=== PATIENT | male | born 1985 | race Caucasian/White ===

== ENCOUNTER 2018-11-13 14:38 | Emergency (ER) | payer MEDICAID, SELFPAY ==
[2018-11-13 14:40] VITALS: BP 114/78; PULSE 117; RESP 16; TEMP 36.2; O2SAT 97; BMI 24.6
--- NOTE | 2018-11-13 16:21 | ED.VISSUMM ---
- ER Visit Summary Date of Service: 11/13/18 Chief Complaint: Vomiting History of Present Illness: The patient is a 33 M reports nausea, vomiting, and diarrhea since early this morning. He denies fever. He is his abdomen feels queasy but no overt abdominal pain. He denies ill contacts. He has had no prior abdominal surgeries. Physical Examination: Vital signs significant only for heart rate of 117. Patient is lying in bed. He appears ill but in no acute distress. Head neck examination is significant for mildly dry mucous membranes. Heart is slightly tachycardic and regular. Lungs sounds are clear. Abdomen is soft and nontender. Active bowel sounds are noted in all 4 quadrants. Test Results: CBC is normal. Chemistry studies unremarkable. Emergency Department Course and Treatment: Patient is given IV fluids along with Zofran and Bentyl. On repeat evaluation he does feel improved. He will be given prescriptions for the same. Treatment Plan: [] Disposition: Discharge Impression: Viral gastroenteritis This note was generated with [employer] dictation software. It may contain incorrect words, spelling, and punctuation that were not noted in review of the chart prior to signing
[2018-11-13] MEDS: 0.9% Normal Saline 1,000 ML 1000 ML IV (16:35)
[2018-11-13] MEDS: Ondansetron 4 MG/2 ML Vial IV (16:36)
[2018-11-13] MEDS: Dicyclomine 10 MG Capsule 20 MG PO (16:36)
[2018-11-13 16:39] VITALS: BP 116/76; PULSE 81; RESP 14; O2SAT 96
[2018-11-13 16:46] LABS: Absolute Lymphocyte Count 1.66 X10^3/ul (0.83-4.51); Absolute Neutrophil Count 7.9 X10^3/uL (2.0-7.7); Basophil# 0.03 X10^3/uL; Basophil% 0.3 % (0-1); Eosinophil# 0.18 X10^3/uL; Eosinophils% 1.8 % (0-5); Hematocrit 48.6 % (40-54); Hemoglobin 16.1 g/dl (13.0-16.5); Lymphocyte # 1.66 X10^3/ul (4.0); Lymphocyte % 16.2 % (19-41); Mean Corp Hgb Conc 33.1 g/gl (32-36); Mean Corpuscular Hgb 28.3 pg (27.0-32.0); Mean Corpuscular Volume 85.4 fL (80-94); Mean Platelet Vol. 10.7 fl (6.2-12.0); Monocyte% 4.9 % (0-10); Neutrophil # 7.89 X10^3/uL (2.7-7.7); Neutrophil % 76.7 % (47-70); Platelet Count 243 K/mm3 (150-450); RBC Distribution Width CV 13.2 % (11.6-14.6); RBC Distribution Width SD 41.1 fl (35.1-43.9); Red Blood Count 5.69 M/mm3 (4.6-6.2); White Blood Count 10.3 K/mm3 (4.4-11.0)
[2018-11-13 16:48] LABS: POSITIVE COUNT NO; POSITIVE DIFFERENTIAL NO; POSITIVE MORPHOLOGY NO
[2018-11-13 17:02] LABS: Anion Gap 4 (5-15); BUN 20 mg/dL (7-18); BUN/Creat Ratio 17.2 RATIO (10-20); Calcium,Total 8.5 mg/dL (8.5-10.1); Chloride 104 mmol/L (98-107); Creatinine, Serum 1.16 mg/dL (0.70-1.30); EST Glomerular Filtration Rate 77 mL/min (>60); Est Glom Filt Rate - Afr Amer 93 mL/min (>60); Estimated Creatinine Clearance 64.06 ml/min; Glucose 84 mg/dL (74-106); Potassium 4.2 mmol/L (3.5-5.1); Sodium Level 135 mmol/L (136-145)
--- NOTE | 2018-11-13 17:55 | ED.DEP ---
ED Disposition - Plan for ED Patient: Disposition: Home or Assisted Living Instructions: ED Gastroenteritis Viral Prescriptions: Ondansetron [Zofran Odt] 4 mg PO Q8H PRN PRN #10 tablet PRN Reason: Nausea Dicyclomine HCl [Bentyl] 20 mg PO TIDAC PRN #20 capsule PRN Reason: Pain Referrals: Keshawn Roberson MD [STAFF PHYSICIAN] - As Needed
[2018-11-13 18:05] VITALS: BP 98/66; PULSE 64; RESP 16; O2SAT 99
== END 2018-11-13 18:07 | disposition home or self-care (01) ==
PROVIDERS: Emergency Provider Emergency Medicine
DX: A08.4 Viral intestinal infection, unspecified (principal)
CPT/HCPCS: 80048; 85025; 96361; 96374; 99285; J7030; J2405

== ENCOUNTER 2019-02-28 23:01 | Emergency (ER) | payer OTHER, SELFPAY ==
[2019-02-28 23:02] VITALS: BP 119/75; PULSE 82; RESP 16; TEMP 37.2; O2SAT 99; BMI 24.0
--- NOTE | 2019-02-28 23:34 | ED.VISSUMM ---
- ER Visit Summary Date of Service: 02/28/19 Chief Complaint: Bilateral knee pain History of Present Illness: The patient is a 33 M who has bilateral knee pain. It started today at work. He was putting a tire onto a piece of equipment when the tire slid down his knees. He denies any blunt trauma. He states that just rubbed against his skin. He has pain in the bilateral prepatellar areas. Is worse with walking. He took nothing for it. No history of any surgeries. He does not want to file Worker's Compensation Physical Examination: Vital signs are reviewed. Bilateral knee exam reveals tenderness in the bilateral patellar areas. There is no erythema. There is no swelling. He has full range of motion. Test Results: None performed Emergency Department Course and Treatment: Patient presents with a friction injury to the skin of his knees. There is no erythema that I can see. I will give him Tylenol and ice packs here. He will continue the same at home. Do not feel imaging is necessary as he has no direct trauma to the noise. Treatment Plan: [] Disposition: Discharge Impression: Bilateral knee pain This note was generated with [employer] dictation software. It may contain incorrect words, spelling, and punctuation that were not noted in review of the chart prior to signing ED Disposition - Plan for ED Patient: Referrals: Care Physician,No Primary [Primary Care Provider] -
--- NOTE | 2019-02-28 23:36 | ED.DEP ---
ED Disposition - Plan for ED Patient: Disposition: Home or Assisted Living Instructions: KNEE PAIN, Uncertain Cause Referrals: Care Physician,No Primary [Primary Care Provider] -
[2019-03-01] MEDS: Acetaminophen 500 MG Tablet 1000 MG PO (00:12)
== END 2019-03-01 00:23 | disposition home or self-care (01) ==
PROVIDERS: Emergency Provider Emergency Medicine
DX: M25.561 Pain in right knee (principal); M25.562 Pain in left knee; Z72.0 Tobacco use
CPT/HCPCS: 99283

== ENCOUNTER 2019-05-29 18:50 | Emergency (ER) | payer MEDICAID, SELFPAY ==
[2019-05-29 18:51] VITALS: BP 129/85; PULSE 87; RESP 17; TEMP 36.7; O2SAT 100; BMI 23.8
--- NOTE | 2019-05-29 19:21 | CT_ITS ---
STUDY: CT ABDOMEN AND PELVIS WITHOUT CONTRAST REASON FOR EXAM: Male, 33 years old. Right flank pain and painful urination x1 month RADIATION DOSAGE (If Supplied By Facility): CTDIvol = ( 6.06 ) mGy, DLP = ( 290.51 ) mGycm TECHNIQUE: Transaxial images were obtained from the dome of the diaphragm to the symphysis pubis without oral contrast, and without intravenous contrast. Sagittal and coronal images were reconstructed. Individualized dose optimization techniques were used for this CT. COMPARISON: None. FINDINGS: The visualized lung bases are unremarkable. The visualized portions of the heart are within normal limits. Normal liver. The gallbladder is contracted. Normal spleen. Normal pancreas. Normal bilateral adrenal glands. Normal right kidney. Normal left kidney. Normal visualized stomach. Normal small intestine. Normal colon. The appendix is visualized and appears normal. Normal abdominal aorta. Normal inferior vena cava. Normal retroperitoneum. Normal urinary bladder. There are bilateral pelvic phleboliths. There is a small umbilical hernia containing fat. Normal osseous structures. CT/Abdomen/Pelvis without Cont IMPRESSION: Small fat-containing umbilical hernia. There is no evidence of nephro or ureterolithiasis, hydronephrosis, or hydroureter. No abnormal free or loculated intra-abdominal or intrapelvic fluid or air is seen. No inflammatory process is evident. Electronically Signed: Jonh Das MD at 20:46 EDT , Service support ,
[2019-05-29 19:54] LABS: Bacteria 0 SEEN /hpf (None Seen); Mucous, Urine 0 SEEN /hpf (<or=2+); Red Blood Cells-Urine 0 SEEN /hpf (0-5); Squamous Epithelial Cells - UA 0 SEEN /hpf (0-5)
[2019-05-29 19:56] LABS: Color, Urine Yellow (Yellow); Glucose, Dipstick Normal (Normal); Ketone-Dipstick Negative (Negative); Leukocyte Esterase-Dipstick 100 /ul (Negative); Nitrite-Dipstick Negative (Negative); Occult Blood-Urine Negative /ul (Negative); Protein-Dipstick Negative (Negative); Urine Bilirubin Dipstick Negative (Negative); Urine Clarity Clear (Clear); Urine Urobilinogen Normal (Normal)
[2019-05-29 20:02] LABS: White Blood Cells 10-25 SEEN /hpf (0-5)
[2019-05-29 21:27] LABS: Chlamydia Trachomatis by PCR Negative (Negative); Neisserai gonorrhoeae by PCR Negative (Negative); Probe Check PASS; Sample Adequacy Control PASS; Specimen Processing Control PASS
--- NOTE | 2019-05-29 21:41 | ED.VISSUMM ---
- ER Visit Summary Date of Service: 05/29/19 Chief Complaint: Dysuria History of Present Illness: The patient is a 33 M who states that he was recently in alf for about 30 days. He tells me during which time he developed a right low back pain that is sharp worse with movement and touch. Although he also developed dysuria and tells me he was put on some unknown antibiotic which seem to be helping but his symptoms have worsened. He also notes a cloudy penile discharge. His sexual partner is and denies any current symptoms of discharge or STDs. Physical Examination: Afebrile vital signs stable Gen: Well-nourished well-developed Head: Normocephalic atraumatic Eyes: Perrl EOMI ENT: TMs clear no rhinorrhea moist mucous membranes Neck: Supple no lymphadenopathy no JVD nontender CVS: Regular rate rhythm no murmurs normal S1-S2 Respiratory: No distress clear to auscultation bilaterally chest nontender Abdomen: Soft nontender nondistended normal bowel sounds no masses Back: Tender to palpation in the right lower lumbar paraspinal musculature Extremity: Nontender no edema Skin: Normal color no rash Neuro: alert orientated ?3 CN II-XII intact normal strength sensation Psych: Normal affect normal mood Test Results: Urinalysis 10-25 white blood cells. Gonorrhea and Chlamydia negative. CT the flank was negative for acute findings Emergency Department Course and Treatment: Urine culture was ordered patient will be treated with Bactrim and Flagyl. Flagyl thinking that this could possibly be a trichomonas. Also treated with Naprosyn and Flexeril for the presumed lumbar muscle pain. He received a dose of Toradol here. I have asked that he follow-up with urology for his urinary symptoms if they do not improve. Impression: 1. Dysuria 2. Right low back musculoskeletal pain This note was generated with [employer] dictation software. It may contain incorrect words, spelling, and punctuation that were not noted in review of the chart prior to signing ED Disposition - Plan for ED Patient: Disposition: Home or Assisted Living Instructions: URETHRITIS, Male (Infec vs Inflam), Adult Prescriptions: Smz/Tmp Ds [Bactrim Ds] 1 tab PO BID #14 tab Prescription Printed cycloBENZAPRine HCl [Flexeril] 10 mg PO TID PRN #15 tab PRN Reason: Muscle Spasm Prescription Printed Metronidazole 2,000 mg PO X1 #4 tab Prescription Printed Naproxen [Naprosyn] 500 mg PO BID #14 tab Prescription Printed Referrals: Ryley Clayton MD [STAFF PHYSICIAN] - 1 Week if not improving
[2019-05-29] MEDS: Ketorolac 60 MG/2 ML Vial IM (21:58)
[2019-05-29 22:00] VITALS: BP 122/85; PULSE 83; PULSE 86; RESP 14; RESP 16; O2SAT 98
== END 2019-05-29 22:33 | disposition home or self-care (01) ==
PROVIDERS: Emergency Provider Emergency Medicine
DX: R30.0 Dysuria (principal); M79.18 Myalgia, other site; Z86.718 Personal history of other venous thrombosis and embolism
CPT/HCPCS: 74176; 81001; 87086; 87491; 87591; 96372; 99283

== ENCOUNTER 2019-06-06 14:54 | Emergency (ER) | payer MEDICAID, SELFPAY ==
[2019-06-06 14:55] VITALS: BP 135/85; PULSE 91; RESP 16; TEMP 36.6; O2SAT 99; BMI 24.7
--- NOTE | 2019-06-06 15:13 | ED.VISSUMM ---
- ER Visit Summary Date of Service: 06/06/19 Chief Complaint: [Drainage from penis] History of Present Illness: The patient is a 33 M [presents to the emergency department with complaint of drainage from his penis for over a week and a half. Patient states that he was seen in the emergency department about a week ago and had a work-up for this including a CT scan of the abdomen and pelvis because he was complaining some back pain as well and dysuria. CT was unremarkable and he was negative for gonorrhea and chlamydia. Patient did have white blood cells in his urine but the urine culture was negative. Patient was started on Bactrim and Flagyl. Patient states that he had an allergic reaction to the Bactrim so he went to [facility] where he was prescribed a different antibiotic. Patient states that he did take the Flagyl. Denies any fevers. Denies nausea or vomiting. His sexual partner does not have any infectious symptoms. Patient states that his symptoms started while he was in [facility] but he did not have any sexual partners in [facility].] Physical Examination: [HEENT-PERRLA, EOMI. Cranial nerves II through XII grossly intact. TMs clear. Mucous membranes moist. No adenopathy. Cardiovascular-regular rate and rhythm without murmur or ectopy Lungs-clear to auscultation, chest wall stable without crepitus or subcu emphysema Abdomen-normoactive bowel sounds, soft, nontender, no rebound or rigidity, no peritoneal signs. exam-patient is a circumcised male. No inguinal adenopathy. Testicles are nontender. Patient had minimal evidence of clear discharge at the urethral meatus. Extremities-intact ?4, normal range of motion, normal pulses, atraumatic] Test Results: [Culture of the fluid at the urethral meatus was obtained. Urinalysis was normal.] Emergency Department Course and Treatment: [Patient given 1 g of Zithromax to cover for possible media although he did have a negative chlamydia test with his last visit.] Treatment Plan: [Patient to finish his antibiotics and follow-up with urology if symptoms persist. I will give patient a prescription for Pyridium.] Disposition: [Discharged home in stable condition] Impression: [Dysuria Penile discharge-etiology uncertain] This note was generated with [employer] software. It may contain incorrect words, spelling, and punctuation that were not noted in review of the chart prior to signing ED Disposition - Plan for ED Patient: Referrals: Care Physician,No Primary [Primary Care Provider] -
[2019-06-06 16:13] LABS: Bacteria 0 SEEN /hpf (None Seen); Mucous, Urine 0 SEEN /hpf (<or=2+); Red Blood Cells-Urine 0 SEEN /hpf (0-5); Squamous Epithelial Cells - UA 0 SEEN /hpf (0-5)
[2019-06-06 16:22] LABS: Color, Urine Yellow (Yellow); Glucose, Dipstick Normal (Normal); Ketone-Dipstick 5 mg/dl (Negative); Leukocyte Esterase-Dipstick 100 /ul (Negative); Nitrite-Dipstick Negative (Negative); Occult Blood-Urine Negative /ul (Negative); Protein-Dipstick Negative (Negative); Urine Bilirubin Dipstick Negative (Negative); Urine Clarity Clear (Clear); Urine Urobilinogen 1 mg/dl (Normal)
[2019-06-06 16:46] LABS: White Blood Cells 0-5 SEEN /hpf (0-5)
--- NOTE | 2019-06-06 16:58 | ED.DEP ---
ED Disposition - Plan for ED Patient: Instructions: URETHRITIS, Male (Infec vs Inflam), Adult Prescriptions: Phenazopyridine HCl [Pyridium] 200 mg PO BID PRN PRN #10 tab PRN Reason: Pain Prescription Printed Referrals: Care Physician,No Primary [Primary Care Provider] - Ryley Clayton MD [STAFF PHYSICIAN] - 3-5 Days
[2019-06-06] MEDS: Azithromycin 250 MG Tablet 1000 MG PO (17:05)
[2019-06-06 17:07] VITALS: BP 115/75; PULSE 104; RESP 16; TEMP 36.6; O2SAT 99
== END 2019-06-06 17:07 | disposition home or self-care (01) ==
LOC: ED 15:56
PROVIDERS: Emergency Provider Emergency Medicine
DX: N34.2 Other urethritis (principal); R36.9 Urethral discharge, unspecified; R30.0 Dysuria; F17.220 Nicotine dependence, chewing tobacco, uncomplicated
CPT/HCPCS: 81001; 87070; 87077; 87086; 87186; 87205; 99283

== ENCOUNTER 2019-06-11 09:27 | Emergency (ER) | payer MEDICAID, SELFPAY ==
[2019-06-11 09:28] VITALS: BP 119/71; PULSE 107; RESP 14; TEMP 36.6; O2SAT 98; BMI 24.3
--- NOTE | 2019-06-11 09:37 | RAD_ITS ---
STUDY: X-RAY CHEST REASON FOR EXAM: Male, 33 years old. One-week history of palpitations. TECHNIQUE: Single AP portable view of the chest. COMPARISON: None. FINDINGS: EKG electrodes are seen. The lungs are clear and expanded. There is no demonstrated pleural abnormality. Normal size heart. Calcified left hilar lymph nodes. Normal visualized pulmonary arteries. Normal visualized aortic arch and descending thoracic aorta. Normal visualized thoracic spine. Normal visualized ribs, clavicles, and shoulders. There is no demonstrated abnormality of the visualized soft tissue structures of the upper abdomen. RAD/Chest 1 View (Portable) IMPRESSION: No acute abnormality is seen. Electronically Signed: Donavan Cervantes, at 10:18 EDT , Service support ,
--- NOTE | 2019-06-11 09:37 | EKG12_ITS ---
Test Reason : PALPS Blood Pressure : / mmHG Vent. Rate : 101 BPM Atrial Rate : 101 BPM P-R Int : 126 ms QRS Dur : 082 ms QT Int : 328 ms P-R-T Axes : 074 047 060 degrees QTc Int : 425 ms Sinus tachycardia Septal infarct , age undetermined Abnormal ECG Confirmed by KIMBERLY MAJOR MD ([id number]), research editor QUITA VELEZ ([id number] on 06/15/2019 10:30:09 AM Referred By: ABBI
[2019-06-11 09:43] VITALS: PULSE 100; RESP 18; O2SAT 99
--- NOTE | 2019-06-11 09:53 | ED.DCSUM_ITS ---
- ER Visit Summary Date of Service: 06/11/19 Chief Complaint: Palpitations History of Present Illness: The patient is a 33 M hx of anxiety. Patient states she had palpitations for approximately 1 month. Was treated at the ER and told that time he had allergic reaction. He is never had any cardiac surgery. He is never been cardioverted. Is never been told he had SVT or A. fib that he is aware of. He denies any chest pain or shortness of breath. He states this comes and goes. Physical Examination: Young male no acute distress. Vital signs are stable and afebrile. Heart rate about 100. Sinus rhythm on the monitor. Pulse ox 98% room air no signs of hypoxia. HEENT exam normal. Neck nontender. No thyromegaly. No lymphadenopathy. Lungs clear to auscultation bilaterally. Heart regular rate and rhythm rate about 100 no murmur. Abdomen soft nontender normal bowel sounds no peritoneal signs. Extremities moves all 4. Calves are nontender without edema or cords. Neurologically is awake alert with no focal motor or sensory deficits. Back nontender. Skin unremarkable. Test Results: CBC normal white count of 7 hemoglobin 15. Chemistries normal normal gap of 5 creatinine 0.9. Troponin normal. TSH normal 1.0. EKG sinus tachycardia rate of 101 with no acute signs of KS, ischemia or dysrhythmia. Chest x-ray portable one view read both myself and radiologist shows no acute abnormality. Normal cardiac silhouette mediastinum. Emergency Department Course and Treatment: Patient's exam is normal. He will undergo cardiac work-up. Repeat exam he is doing well. He had no change. He will be discharged home. Treatment Plan: Follow-up as an outpatient. Disposition: Discharged Impression: Acute, transient palpitations of uncertain etiology resolved This note was generated with [employer] dictation software. It may contain incorrect words, spelling, and punctuation that were not noted in review of the chart prior to signing ED Disposition - Plan for ED Patient: Referrals: Care Physician,No Primary [Primary Care Provider] -
[2019-06-11 10:05] LABS: Absolute Lymphocyte Count 1.79 X10^3/uL (0.83-4.51); Absolute Neutrophil Count 4.8 X10^3/uL (2.0-7.7); Basophil# 0.07 X10^3/uL; Eosinophil# 0.16 X10^3/uL; Eosinophils% 2.2 % (0-5); Hematocrit 45.2 % (40-54); Hemoglobin 15.2 g/dL (13.0-16.5); Lymphocyte # 1.79 X10^3/ul (4.0); Lymphocyte % 24.9 % (19-41); Mean Corp Hgb Conc 33.6 g/dL (32-36); Mean Corpuscular Hgb 28.7 pg (27.0-32.0); Mean Corpuscular Volume 85.3 fL (80-94); Mean Platelet Vol. 9.9 fl (6.2-12.0); Monocyte# 0.36 X10^3/uL; NRBC Flagged by Analyzer 0 % (0-5); Neutrophil # 4.77 X10^3/uL (2.7-7.7); Neutrophil % 66.5 % (47-70); Platelet Count 227 K/mm3 (150-450); RBC Distribution Width CV 12.3 % (11.6-14.6); RBC Distribution Width SD 38.2 fl (35.1-43.9); White Blood Count 7.2 K/mm3 (4.4-11.0)
[2019-06-11 10:34] LABS: Anion Gap 5 (5-15); BUN 20 mg/dL (7-18); BUN/Creat Ratio 21.1 RATIO (10-20); Calcium,Total 8.3 mg/dL (8.5-10.1); Chloride 109 mmol/L (98-107); Creatinine, Serum 0.95 mg/dL (0.70-1.30); EST Glomerular Filtration Rate 97 mL/min (>60); Est Glom Filt Rate - Afr Amer 117 mL/min (>60); Estimated Creatinine Clearance 78.22 ml/min; Glucose 108 mg/dL (74-106); Potassium 4.1 mmol/L (3.5-5.1); Sodium Level 141 mmol/L (136-145); Thyroid Stim Hormone (TSH) 1.08 uIU/mL (0.358-3.74)
--- NOTE | 2019-06-11 11:14 | ED.DEP ---
ED Disposition - Plan for ED Patient: Disposition: Home or Assisted Living Instructions: Palpitations Referrals: Elian Tapia MD [NON-STAFF] - 3-5 Days Additional Instructions: All your tests today were normal. Follow-up with an outpatient primary care physician. Return to the ER feeling worse.
[2019-06-11 11:16] VITALS: BP 126/77; PULSE 95; RESP 18; O2SAT 98
== END 2019-06-11 11:20 | disposition home or self-care (01) ==
PROVIDERS: Emergency Provider Emergency Medicine
DX: R00.2 Palpitations (principal); F17.220 Nicotine dependence, chewing tobacco, uncomplicated
CPT/HCPCS: 71045; 80048; 84443; 84484; 85025; 93005; 99285; A4216

== ENCOUNTER 2019-06-19 16:55 | Emergency (ER) | payer MEDICAID, SELFPAY ==
[2019-06-19 16:56] VITALS: BP 124/86; PULSE 103; RESP 15; TEMP 36.7; O2SAT 98; BMI 24.2
--- NOTE | 2019-06-19 17:31 | ED.VIS.INJ ---
History of Present Illness Chief Complaint: Bite Informant: Patient Onset: Today Mechanism/Context: Blunt Injury - Bit by dog right dorsal right arm and dorsal mid left forearm Quality of Pain: Dull Current Severity: Mild Maximum Severity: Moderate Worsened by: Right Relieved by: Nothing Associated Symptoms: Negative for: Parasthesias, Weakness, Loss of function, Inability to ambulate, Loss of consciousness, Amnesia Length of loss of consciousness: NA Narrative: Patient 34-year-old male who states he was entering the apartment. Saw dog out of his peripheral vision. He went to touch the dog. Dog bit him. Patient's immunization is not up-to-date. He denies paresthesia, anesthesia or motor weakness. Tetanus Immunization: >10 years Prior similar symptoms: No Recent Illness/Hospitalization: No - Past Medical History (1) No significant past medical history Status: Acute Past Medical History - Allergies and Home Meds Allergies/Adverse Reactions: Allergies amoxicillin Allergy (Verified 06/19/19 16:59) Hives Penicillins [PCN] Allergy (Verified 06/19/19 16:59) Hives sulfamethoxazole [From Bactrim] Allergy (Verified 06/19/19 16:59) Hives trimethoprim [From Bactrim] Allergy (Verified 06/19/19 16:59) Hives Primary Care Physician: Care Physician,No Primary [Primary Care Provider] - Prior records reviewed: No Past Medical History: None Surgical History: no surgical history Lives: Alone Smoking Status: Never smoker Alcohol: None Drugs: None Review of Systems General: Denies: Chills, Fever, Malaise Musculoskeletal: Reports: Extremity Pain. Denies: Myalgias, Arthralgias, Neck pain, Back pain, Swelling Skin: Reports: Abrasions, Wounds. Denies: Rash, Abscess Neurological: Denies: Headache, Weakness, Parasthesia, Numbness Hematologic: Denies: Easy bruising, Easy bleeding Allergy: Denies: Uticaria, Swelling of the mouth, Swelling of the tongue Physical Exam Vital Signs/Narrative: Vital Signs Temp Pulse Resp BP Pulse Ox 06/19/19 16:56 98.1 F 103 H 15 124/86 H 98 Inital Vital Signs reviewed: Yes General: Well nourished, Well developed. Negative for: Obese, Cachectic, Contractures, Unkempt Eyes: Perrl, EOMI ENT: TM's clear, No hemotympanum or drainage, No trauma Cardiovascular: Regular rate, Regular rhythm Respiratory: No distress, CTA bilaterally Extremeties: Patient has a bite hunter posterior mid right arm with bruising only. There is no break in the skin. There are no neurovascular findings. There is a bite dorsal mid left forearm. There is an abrasion noted. There is no puncture wound. There is no point tenderness. Median, radial and ulnar function intact. There is no vascular compromise. Skin: Normal color, No rash, Trauma Neurological: Negative for: Alert, Oriented x3, Cranial nerves II-XII grossly intact, Normal Strength, Normal Sensation, Normal DTR Diagnostic/Tx/Re-eval - Medical Decision Making She with dog bite. Wound will be cleansed and dressed. Tetanus was updated. No imaging is required. ED Disposition - Plan for ED Patient: Disposition: Home or Assisted Living Diagnosis: Dog bite of right arm, Dog bite of left forearm without complication Instructions: Dog Bite Referrals: Care Physician,No Primary [Primary Care Provider] - Additional Instructions: Follow-up with your primary care provider that you were assigned to by your insurance carrier, care source. If there is any concern for infection do not hesitate to return.
[2019-06-19] MEDS: Diphth,Pertuss(Acell),Tet Vac 0.5 ML Vial IM (17:55)
== END 2019-06-19 18:03 | disposition home or self-care (01) ==
LOC: ED 17:43
PROVIDERS: Emergency Provider Emergency Medicine
DX: S51.852A Open bite of left forearm, initial encounter (principal); S41.151A Open bite of right upper arm, initial encounter; Z23 Encounter for immunization; W54.0XXA Bitten by dog, initial encounter; Y93.89 Activity, other specified; Y92.89 Other specified places as the place of occurrence of the external cause; Y99.8 Other external cause status
CPT/HCPCS: 90471; 90715; 99282

== ENCOUNTER 2019-07-01 19:01 | Emergency (ER) | payer MEDICAID, SELFPAY ==
[2019-07-01 19:02] VITALS: BP 129/84; PULSE 88; RESP 17; TEMP 36.8; O2SAT 99; BMI 25.0
--- NOTE | 2019-07-01 19:30 | ED.DCSUM_ITS ---
History of Present Illness Chief Complaint: Upper Extremity Injury Informant: Patient Onset: Days Context: Sudden Onset Timing: Continuous Quality: Pain Location: Medial side right index PIP joint Current Severity: Mild Maximum Severity: Moderate Worsened by: Palpation and movement Relieved by: Nothing Associated Symptoms: No associated symptoms Narrative: This is a 34-year-old mweeg-ihoh-uesvlror male presents with atraumatic right index finger that he localizes over the ulnar side of the PIP joint. There is no history of autoimmune disorder. He denies paresthesia, anesthesia motor weakness. He denies history of discoloration of his fingers when it is cold. Prior similar symptoms: No Recent Illness/Hospitalization: No - Past Medical History (1) No significant past medical history Status: Acute Past Medical History - Allergies and Home Meds Allergies/Adverse Reactions: Allergies amoxicillin Allergy (Verified 07/01/19 19:02) Hives Penicillins [PCN] Allergy (Verified 07/01/19 19:02) Hives sulfamethoxazole [From Bactrim] Allergy (Verified 07/01/19 19:02) Hives trimethoprim [From Bactrim] Allergy (Verified 07/01/19 19:02) Hives Primary Care Physician: Care Physician,No Primary [Primary Care Provider] - Prior records reviewed: Yes Past Medical History: None Surgical History: no surgical history Lives: With Family Smoking Status: Never smoker Alcohol: None Review of Systems General: Denies: Chills, Fever, Malaise, Sweats Musculoskeletal: Reports: Extremity Pain. Denies: Myalgias, Arthralgias, Neck pain, Back pain, Swelling Skin: Denies: Rash, Abrasions, Wounds Neurological: Denies: Weakness, Parasthesia, Numbness Hematologic: Denies: Easy bruising, Easy bleeding Allergy: Denies: Uticaria, Swelling of the mouth Physical Exam Vital Signs/Narrative: Vital Signs Temp Pulse Resp BP Pulse Ox 07/01/19 19:02 98.3 F 88 17 129/84 H 99 Inital Vital Signs reviewed: Yes General: Well nourished, Well developed, No Acute Distress Head: Normocephalic, Atraumatic Eyes: Perrl, EOMI. Negative for: Pale conjunctiva, Scleral icterus Cardiovascular: Regular rate, Regular rhythm, No murmurs, Normal S1, Normal S2 Respiratory: No distress, CTA bilaterally, Chest nontender Extremities: No edema, Tenderness - There is tenderness ulnar side of the PIP joint right index finger. Able to extend and flex at the PIP, and DIP joint. There is no laxity of the collateral ligaments with stress testing. Capillary refill is normal. Sensation is normal. There is no subungual hematoma. There is no evidence of trauma.. Negative for: Nontender Skin: Normal color, No rash. Negative for: Cyanosis, Diaphoresis, Jaundice Neurological: Alert, Oriented x3, Cranial nerves II-XII grossly intact, Normal Strength, Normal Sensation Psychological: Normal affect, Normal Mood Diagnostic/Tx/Re-eval Chest X-Ray - ED: Read by ED Physician, - - Three-view x-ray of the right index finger was obtained. There is no evidence of fracture, foreign body, subluxation or dislocation. There is no soft tissue swelling. 07/01/19 19:40 Finger(s) Min 2 Views [RAD] Stat - Medical Decision Making Patient was treated with NSAIDs and has no contraindication. Patient was informed that his x-ray is normal. He was informed the cause of his pain is unknown at this time. Recommended follow up with his primary care provider. ED Disposition - Plan for ED Patient: Disposition: Home or Assisted Living Diagnosis: Pain right index finger Instructions: PAIN, Uncertain Cause (Acute) Prescriptions: Naproxen [Naprosyn] 500 mg PO BID #14 tab Prescription Printed Referrals: Care Physician,No Primary [Primary Care Provider] - Doctor,Your [STAFF PHYSICIAN] - 3-5 Days if not improving Additional Instructions: Recommend following up with your primary care provider. The name of your primary care provider is on your insurance card given to you by [facility].
--- NOTE | 2019-07-01 19:40 | RAD_ITS ---
STUDY: X-RAY - RIGHT HAND, ATTENTION SECOND FINGER REASON FOR EXAM: Male, 34 years old. Pain, no known injury TECHNIQUE: 3 view(s) of the finger were obtained. COMPARISON: None. FINDINGS: Normal metacarpal head. Normal metacarpophalangeal joint. Normal proximal phalanx. Normal middle phalanx. Normal distal phalanx. Normal proximal interphalangeal joint. Normal distal interphalangeal joint. RAD/Finger(s) Min 2 Views IMPRESSION: Normal x-ray examination of the finger. Electronically Signed: Jonh Das MD at 20:04 EST , Service support ,
[2019-07-01] MEDS: Naproxen 250 MG Tablet 500 MG PO (20:14)
== END 2019-07-01 20:16 | disposition home or self-care (01) ==
PROVIDERS: Emergency Provider Emergency Medicine
DX: M79.644 Pain in right finger(s) (principal)
CPT/HCPCS: 73140; 99283

== ENCOUNTER 2019-08-05 15:31 | Emergency (ER) | payer MEDICAID, SELFPAY ==
[2019-08-05 15:32] VITALS: BP 138/106; PULSE 109; RESP 16; TEMP 36.6; O2SAT 99; BMI 25.0
[2019-08-05] MEDS: Ondansetron 4 MG/2 ML Vial IV (16:08)
[2019-08-05] MEDS: Ketorolac 30 MG/ML Syringe IV (16:08)
[2019-08-05 16:13] VITALS: BP 137/93
[2019-08-05 16:21] LABS: Absolute Neutrophil Count 6.1 X10^3/uL (2.0-7.7); Basophil# 0.06 X10^3/uL; Basophil% 0.7 % (0-1); Eosinophil# 0.13 X10^3/uL; Eosinophils% 1.6 % (0-5); Hematocrit 46.3 % (40-54); Hemoglobin 15.9 g/dL (13.0-16.5); Lymphocyte % 17.3 % (19-41); Mean Corp Hgb Conc 34.3 g/dL (32-36); Mean Corpuscular Hgb 28.9 pg (27.0-32.0); Mean Platelet Vol. 9.7 fl (6.2-12.0); Monocyte# 0.38 X10^3/uL; Monocyte% 4.7 % (0-10); NRBC Flagged by Analyzer 0 % (0-5); Neutrophil # 6.07 X10^3/uL (2.7-7.7); Neutrophil % 75.2 % (47-70); Platelet Count 204 K/mm3 (150-450); RBC Distribution Width CV 12.1 % (11.6-14.6); RBC Distribution Width SD 36.6 fl (35.1-43.9); Red Blood Count 5.51 M/mm3 (4.6-6.2); White Blood Count 8.1 K/mm3 (4.4-11.0)
[2019-08-05 16:41] LABS: Bacteria 0 SEEN /hpf (None Seen); Mucous, Urine 0 SEEN /hpf (<or=2+); Red Blood Cells-Urine 0 SEEN /hpf (0-5); Squamous Epithelial Cells - UA 0 SEEN /hpf (0-5); White Blood Cells 0 SEEN /hpf (0-5)
--- NOTE | 2019-08-05 16:41 | ED.VIS.GEN ---
History of Present Illness Informant: Patient Narrative: 34-year-old male presents with abdominal pain. States is been present for 24 hours. Describes it as epigastric in nature. Nonradiating. Admits to nausea without vomiting. Denies any fever, chills, chest pain, shortness of breath, urinary symptoms. Patient had sexual intercourse with his girlfriend 4 days ago while she was menstruating and recently found out that she has hepatitis C. Denies any drug abuse, alcohol abuse, smoking. <Roge Huertas - Last Filed: 08/05/19 17:05> <Elias Hood - Last Filed: 08/05/19 22:14> Chief Complaint: Abd Pain Past Medical History Prior records reviewed: Yes Past Medical History: None Surgical History: no surgical history Smoking Status: Never smoker <Roge Huertas - Last Filed: 08/05/19 17:05> <Elias Hood - Last Filed: 08/05/19 22:14> - Allergies and Home Meds Allergies/Adverse Reactions: Allergies amoxicillin Allergy (Verified 08/05/19 15:32) Hives bee venom protein (honey bee) Allergy (Verified 08/05/19 15:32) Swelling Penicillins [PCN] Allergy (Verified 08/05/19 15:32) Hives sulfamethoxazole [From Bactrim] Allergy (Verified 08/05/19 15:32) Hives trimethoprim [From Bactrim] Allergy (Verified 08/05/19 15:32) Hives Primary Care Physician: Care Physician,No Primary [Primary Care Provider] - Review of Systems General: Denies: Chills, Fever, Sweats Eyes: Denies: Visual changes - bilaterally, Diplopia ENT: Denies: Rhinorrhea, Sore throat Cardiovascular: Denies: Chest pain, Palpitations Respiratory: Denies: Dyspnea, Cough, Dyspnea on exertion Gastrointestinal: Reports: Abdominal pain, Nausea. Denies: Vomiting, Diarrhea, Melena, Hematochezia Genitourinary: Denies: Dysuria, Hematuria, Frequency Musculoskeletal: Denies: Back pain, Extremity Pain Skin: Denies: Rash, Wounds Neurological: Denies: Headache, Weakness, Numbness <Roge Huertas - Last Filed: 08/05/19 17:05> Physical Exam Vital Signs/Narrative: Vital Signs Temp Pulse Resp BP Pulse Ox 08/05/19 16:13 137/93 H 08/05/19 15:32 97.8 F 109 H 16 138/106 H 99 General: Well nourished, Well developed, No Acute Distress Head: Normocephalic, Atraumatic Eyes: Perrl, EOMI ENT: Moist mucous membranes, No rhinorrhea Neck: Supple, Nontender Cardiovascular: Regular rate, Regular rhythm, No murmurs Respiratory: No distress, CTA bilaterally, Chest nontender Abdomen: Soft, Nondistended, Normal bowel sounds, - - TTP in the upper epigastrum. No rebound. Back: Nontender, Normal Inspection Extremities: Nontender, No edema Skin: Normal color, No rash Neurological: Alert, Oriented x3, Cranial nerves II-XII grossly intact, Normal Strength, Normal Sensation Psychological: Normal affect, Normal Mood <Roge Huertas - Last Filed: 08/05/19 17:05> Diagnostic/Tx/Re-eval Laboratory Results 08/05/19 08/05/19 08/05/19 16:05 16:05 16:05 WBC 8.1 RBC 5.51 Hgb 15.9 Hct 46.3 MCV 84.0 MCH 28.9 MCHC 34.3 RDW Std Deviation 36.6 RDW Coeff of Emilie 12.1 Plt Count 204 MPV 9.7 Immature Gran % (Auto) 0.500 Neut % (Auto) 75.2 H Lymph % (Auto) 17.3 L [place] % (Auto) 4.7 Eos % (Auto) 1.6 Baso % (Auto) 0.7 Absolute Neuts (auto) 6.1 Absolute Lymphs (auto) 1.40 Nucleated RBC % 0 Sodium 141 Potassium 3.9 Chloride 107 Carbon Dioxide 28.0 Anion Gap 6 BUN 11 Creatinine 0.96 Estim Creat Clear Calc 76.68 Est GFR (MDRD) Af Amer 115 Est GFR (MDRD) Non-Af 95 BUN/Creatinine Ratio 11.4 Glucose 105 Calcium 8.7 Total Bilirubin 0.60 Direct Bilirubin 0.12 AST 25 ALT 34 Alkaline Phosphatase 77 Total Protein 6.7 Albumin 3.5 Globulin 3.2 Lipase 128 Urine Color Yellow Urine Clarity Cloudy Urine pH 7.0 Ur Specific [place] 1.010 Urine Protein Negative Urine Glucose (UA) Normal Urine Ketones Negative Urine Occult Blood Negative Urine Nitrite Negative Urine Bilirubin Negative Urine Urobilinogen Normal Ur Leukocyte Esterase Negative Urine RBC 0 SEEN Urine WBC 0 SEEN Ur Squamous Epith Cells 0 SEEN Amorphous Sediment 3+ Urine Bacteria 0 SEEN Urine Mucus 0 SEEN - Medical Decision Making Appears well nontoxic. Vital signs show slight tachycardia on arrival which was resolved without treatment. Benign abdominal exam. Lab work within normal limits. Hepatitis panel ordered at patient's request. No evidence of liver damage based upon blood work. Patient was given Zofran and Toradol which did relieve his pain and nausea. He will be given Pepcid and Zofran for home. Patient states that he is going to call Dr. Priest in [place] to set up an appointment tomorrow. Asked to return for new or worsening symptoms. Patient agreeable to this plan and discharged home in stable condition. <Roge Huertas - Last Filed: 08/05/19 17:05> - Medical Decision Making Seen and evaluated independently and in conjunction with resident physician. Agree with notes above unless documented otherwise. I also discussed with the patient that since his possible hepatitis C exposure was 3 days ago, his testing will likely be negative and he will need to follow-up for repeat testing at some point if the suspicion is still high. He will also need to follow-up if he wants testing for other STDs. <Elias Hood - Last Filed: 08/05/19 22:14> ED Disposition <Roge Huertas - Last Filed: 08/05/19 17:05> <Elias Hood - Last Filed: 08/05/19 22:14> - Plan for ED Patient: Disposition: Home or Assisted Living Diagnosis: Abdominal pain Instructions: ABDOMINAL PAIN, Unkown Cause, (Male) Prescriptions: Famotidine [Pepcid] 20 mg PO BID #28 tab Prescription Printed Ondansetron [Zofran Odt] 4 mg PO Q8H PRN PRN #10 tab PRN Reason: Nausea Prescription Printed Referrals: Care Physician,No Primary [Primary Care Provider] -
[2019-08-05 16:42] LABS: Color, Urine Yellow (Yellow); Glucose, Dipstick Normal (Normal); Ketone-Dipstick Negative (Negative); Leukocyte Esterase-Dipstick Negative /ul (Negative); Nitrite-Dipstick Negative (Negative); Occult Blood-Urine Negative /ul (Negative); Protein-Dipstick Negative (Negative); Urine Bilirubin Dipstick Negative (Negative); Urine Clarity Cloudy (Clear); Urine Urobilinogen Normal (Normal)
[2019-08-05 16:49] LABS: Amorphous Sediment 3+
[2019-08-05 17:00] LABS: AST(SGOT) 25 U/L (15-37); Alanine Aminotransfer ALT/SGPT 34 U/L (16-61); Albumin, Serum 3.5 g/dL (3.2-5.0); Alkaline Phosphatase 77 U/L (45-117); Anion Gap 6 (5-15); BUN 11 mg/dL (7-18); BUN/Creat Ratio 11.4 RATIO (10-20); Bilirubin, Direct 0.12 mg/dL (0.00-0.30); Calcium,Total 8.7 mg/dL (8.5-10.1); Chloride 107 mmol/L (98-107); Creatinine, Serum 0.96 mg/dL (0.70-1.30); EST Glomerular Filtration Rate 95 mL/min (>60); Est Glom Filt Rate - Afr Amer 115 mL/min (>60); Estimated Creatinine Clearance 76.68 ml/min; Globulin 3.2 g/dL (2.2-4.2); Glucose 105 mg/dL (74-106); Lipase 128 U/L (73-393); Potassium 3.9 mmol/L (3.5-5.1); Protein, Total 6.7 g/dL (6.4-8.2); Sodium Level 141 mmol/L (136-145)
[2019-08-05 17:14] VITALS: BP 147/91
[2019-08-07 05:06] LABS: HEPATITIS B SURFACE AG Negative (Negative); Hepatitis A IgM Antibody Negative (Negative); Hepatitis B Core AB IgM Negative (Negative)
[2019-08-07 16:28] LABS: Hep C Antibodies <0.1 s/co ratio (0.0-0.9)
== END 2019-08-05 17:15 | disposition home or self-care (01) ==
PROVIDERS: Emergency Provider Emergency Medicine
DX: R10.13 Epigastric pain (principal)
CPT/HCPCS: 80048; 80074; 80076; 81001; 83690; 85025; 96374; 96375; 99283; A4216; J2405

== ENCOUNTER 2019-10-01 08:37 | Emergency (ER) | payer MEDICAID, SELFPAY ==
[2019-10-01 08:38] VITALS: BP 155/92; PULSE 96; RESP 15; TEMP 36.6; O2SAT 98; BMI 25.0
--- NOTE | 2019-10-01 08:51 | ED.DCSUM_ITS ---
History of Present Illness Chief Complaint: Nausea/Vomiting/Diarrhea Informant: Patient - Abdominal Pain/Flank Pain Onset: Hours - 10-12, since late last night Context: Gradual Onset Timing: Continuous Quality: Cramping Location: - - periumbilical Current Severity: Moderate Maximum Severity: Moderate Worsened by: Food Relieved by: Nothing - Nausea/Vomiting/Emesis GI Symptom: Nausea, Vomiting Onset: Today Quality: Nonbilious. Negative for: Blood streaks, Coffee ground, Hematemesis Severity: Severe - Diarrhea/Melena/Hematochezia GI Symptom: Diarrhea. Negative for: Melena, Hematochezia Onset: Today Stool Quality: Watery. Negative for: Black, Maroon, RENITA per rectum Severity: Severe Associated Symptoms: Dysuria - mild burning. Negative for: Frequency - decreased UOP, but urinating, Hematuria, Urgency Narrative: Fever up to 103 last night that responded to Tylenol but he does not know if he kept it all down. No recent antibiotics or travel out of the area. He works at a [employer]. Some employees have been out sick lately but he does not know what they had since they did not show up to work. Does not recall any obvious food ingestion that he is suspicious of may have caused this. Recent Illness/Hospitalization: No Past Medical History - Allergies and Home Meds Allergies/Adverse Reactions: Allergies amoxicillin Allergy (Verified 08/05/19 15:32) Hives bee venom protein (honey bee) Allergy (Verified 08/05/19 15:32) Swelling Penicillins [PCN] Allergy (Verified 08/05/19 15:32) Hives sulfamethoxazole [From Bactrim] Allergy (Verified 08/05/19 15:32) Hives trimethoprim [From Bactrim] Allergy (Verified 08/05/19 15:32) Hives Primary Care Physician: Care Physician,No Primary [Primary Care Provider] - Past Medical History: None Surgical History: no surgical history Lives: Alone Smoking Status: Never smoker Drugs: None Review of Systems General: Reports: Chills, Fever, Malaise. Denies: Sweats Eyes: Denies: Visual changes - bilaterally, Diplopia ENT: Denies: Rhinorrhea, Sore throat Cardiovascular: Denies: Chest pain, Palpitations Respiratory: Denies: Dyspnea, Cough, Dyspnea on exertion Gastrointestinal: Reports: Abdominal pain, Nausea, Vomiting, Diarrhea. Denies: Melena, Hematochezia Genitourinary: Reports: Dysuria. Denies: Hematuria, Frequency Musculoskeletal: Denies: Back pain, Swelling, Extremity Pain Skin: Denies: Rash, Wounds Neurological: Denies: Headache, Weakness, Numbness Physical Exam Vital Signs/Narrative: Vital Signs Temp Pulse Resp BP Pulse Ox 10/01/19 08:38 97.8 F 96 15 155/92 H 98 Inital Vital Signs reviewed: Yes General: Well nourished, Well developed, No Acute Distress Head: Normocephalic, Atraumatic Eyes: Perrl, EOMI ENT: Moist mucous membranes, No rhinorrhea Neck: Supple, Nontender Cardiovascular: Regular rate, Regular rhythm, No murmurs. Negative for: Tachycardia Respiratory: No distress, CTA bilaterally, Chest nontender Abdomen: Soft, Nontender, Nondistended, No masses, Hyperactive bowel sounds Back: Nontender, Normal Inspection. Negative for: CVA tenderness Extremities: Nontender, No edema Skin: Normal color, No rash, No Trauma Neurological: Alert, Oriented x3, Cranial nerves II-XII grossly intact, Normal Strength, Normal Sensation, Normal Gait Psychological: Normal affect, Normal Mood Diagnostic/Tx/Re-eval Laboratory Tests 10/01/19 Range/Units 08:55 Urine Color Yellow (Yellow) Urine Clarity Sl. Cloudy (Clear) Urine pH 8.0 (5.0 - 8.0) Ur Specific [place] 1.015 (1.002-1.030) Urine Protein Negative (Negative) mg/dl Urine Glucose (UA) Normal (Normal) mg/dl Urine Ketones Negative (Negative) mg/dl Urine Occult Blood Negative (Negative) /ul Urine Nitrite Negative (Negative) Urine Bilirubin Negative (Negative) mg/dL Urine Urobilinogen Normal (Normal) mg/dl Ur Leukocyte Esterase Negative (Negative) /ul Urine RBC 0 SEEN (0-5) /hpf Urine WBC 0 SEEN (0-5) /hpf Ur Squamous Epith Cells 0-5 SEEN (0-5) /hpf Urine Bacteria 0 SEEN (None Seen) /hpf Urine Mucus 0 SEEN (<or=2+) /hpf - Medical Decision Making Patient was given IV fluids along with medicines for discomfort and nausea. He is feeling much better and tolerating oral fluids. Suspect viral gastroenteritis, there is been a high prevalence in the area recently. I do not think he needs other work-up emergently at this time. Supportive care advised, given prescription and work note. He is comfortable with this overall plan. ED Disposition - Plan for ED Patient: Disposition: Home or Assisted Living Diagnosis: Viral gastroenteritis Instructions: GASTROENTERITIS, Viral (6y-Adult) Prescriptions: Ondansetron [Zofran Odt] 4 - 8 mg PO Q8H PRN PRN #16 tab PRN Reason: Nausea Prescription Printed Referrals: Keshawn Roberson MD [STAFF PHYSICIAN] - 1 Week if not improving
[2019-10-01 09:05] LABS: Bacteria 0 SEEN /hpf (None Seen); Mucous, Urine 0 SEEN /hpf (<or=2+); Red Blood Cells-Urine 0 SEEN /hpf (0-5); White Blood Cells 0 SEEN /hpf (0-5)
[2019-10-01] MEDS: Ondansetron 4 MG/2 ML Vial IV (09:09)
[2019-10-01] MEDS: 0.9% Normal Saline 1,000 ML 999 ML IV (09:09)
[2019-10-01 09:17] LABS: Color, Urine Yellow (Yellow); Glucose, Dipstick Normal (Normal); Ketone-Dipstick Negative (Negative); Leukocyte Esterase-Dipstick Negative /ul (Negative); Nitrite-Dipstick Negative (Negative); Occult Blood-Urine Negative /ul (Negative); Protein-Dipstick Negative (Negative); Specific Gravity, Urine 1.015 (1.002-1.030); Urine Bilirubin Dipstick Negative (Negative); Urine Clarity Sl. Cloudy (Clear); Urine Urobilinogen Normal (Normal)
[2019-10-01 09:26] LABS: Squamous Epithelial Cells - UA 0-5 SEEN /hpf (0-5)
[2019-10-01] MEDS: Dicyclomine 10 MG Capsule 20 MG PO (09:41)
[2019-10-01 10:43] VITALS: BP 140/87; PULSE 63; RESP 16; O2SAT 100
== END 2019-10-01 10:44 | disposition home or self-care (01) ==
PROVIDERS: Emergency Provider Emergency Medicine
DX: A08.4 Viral intestinal infection, unspecified (principal)
CPT/HCPCS: 81001; 96361; 96374; 99285; J7030; A4216; J2405

== ENCOUNTER 2019-10-12 07:59 | Emergency (ER) | payer MEDICAID, SELFPAY ==
[2019-10-12 08:00] VITALS: BP 123/82; PULSE 133; RESP 20; TEMP 37.7; O2SAT 99; BMI 25.0
--- NOTE | 2019-10-12 08:09 | RAD_ITS ---
STUDY: X-RAY CHEST REASON FOR EXAM: Male, 34 years old. Cough, fever, chills, nausea TECHNIQUE: PA and lateral views of the chest. COMPARISON: Comparison is made with prior study dated October 12, 2019. FINDINGS: Hyperinflation. Scattered calcified granulomas. There is no demonstrated pleural abnormality. Normal size heart. Normal mediastinum and nathalie. Normal visualized pulmonary arteries. Normal visualized aortic arch and descending thoracic aorta. Normal visualized thoracic spine. Normal visualized ribs, clavicles, and shoulders. There is no demonstrated abnormality of the visualized soft tissue structures of the upper abdomen. RAD/Chest PA and Lateral IMPRESSION: Hyperinflation. Electronically Signed: Donavan Cervantes, at 9:04 EST , Service support ,
--- NOTE | 2019-10-12 08:12 | ED.VIS.GEN ---
History of Present Illness Chief Complaint: Cough Onset: Today Narrative: 34-year-old male presents with headache cough body aches fever and a couple episodes of vomiting since last night. No diarrhea. He notes nasal congestion. He notes a sore throat. No home treatment. He states that he is coughed so hard now he is having pink-tinged phlegm. Patient reports that he has a history of SVT but is not having any treatment for it. Currently takes no medications. He has no primary care physician Past Medical History - Allergies and Home Meds Allergies/Adverse Reactions: Allergies amoxicillin Allergy (Verified 10/12/19 07:59) Hives bee venom protein (honey bee) Allergy (Verified 10/12/19 07:59) Swelling Penicillins [PCN] Allergy (Verified 10/12/19 07:59) Hives sulfamethoxazole [From Bactrim] Allergy (Verified 10/12/19 07:59) Hives trimethoprim [From Bactrim] Allergy (Verified 10/12/19 07:59) Hives Primary Care Physician: Latonya Vargas MD [STAFF PHYSICIAN] - Surgical History: no surgical history Smoking Status: Former smoker Review of Systems General: Reports: Chills, Fever, Malaise. Denies: Sweats Eyes: Denies: Visual changes - bilaterally, Diplopia ENT: Reports: Rhinorrhea, Sore throat Cardiovascular: Denies: Chest pain, Palpitations Respiratory: Reports: Dyspnea, Cough, - - Occasional pink-tinged sputum. Denies: Dyspnea on exertion Gastrointestinal: Denies: Abdominal pain, Nausea, Vomiting, Diarrhea, Melena, Hematochezia Genitourinary: Denies: Dysuria, Hematuria, Frequency Musculoskeletal: Reports: Myalgias. Denies: Back pain, Extremity Pain Skin: Denies: Rash, Wounds Neurological: Reports: Headache. Denies: Weakness, Numbness Psych: Denies: Depression, Anxiety, Suicidal thoughts, Suicidal ideations Endocrine: Denies: Polyuria, Polydipsia Hematologic: Denies: Easy bruising, Easy bleeding Physical Exam Vital Signs/Narrative: Vital Signs Temp Pulse Resp BP Pulse Ox 10/12/19 08:00 100 F H 133 H 20 H 123/82 H 99 Inital Vital Signs reviewed: Yes General: Well nourished, Well developed, No Acute Distress Head: Normocephalic, Atraumatic Eyes: Perrl, EOMI ENT: Moist mucous membranes, No rhinorrhea, Nasal congestion Neck: Supple, Nontender Cardiovascular: Regular rate, Regular rhythm, No murmurs, Tachycardia Respiratory: No distress, CTA bilaterally, Chest nontender Abdomen: Soft, Nontender, Nondistended, Normal bowel sounds Back: Nontender, Normal Inspection Extremities: Nontender, No edema Skin: Normal color, No rash Neurological: Alert, Oriented x3, Cranial nerves II-XII grossly intact, Normal Strength, Normal Sensation Psychological: Normal affect, Normal Mood Diagnostic/Tx/Re-eval - Medical Decision Making X-ray shows no infiltrate or pneumothorax or effusion. Normal mediastinal silhouette. Clinically the patient has an influenza. Patient received Motrin. Home treatment was discussed. Return instructions understood. ED Disposition - Plan for ED Patient: Disposition: Home or Assisted Living Diagnosis: Influenza Instructions: Influenza Prescriptions: Ibuprofen [Motrin] 800 mg PO TID PRN PRN #20 tab PRN Reason: Fever Transmission Status: Pending to [facility] Ondansetron [Zofran Odt] 4 mg PO Q8H PRN PRN #14 tab PRN Reason: Nausea Transmission Status: Pending to [facility] Referrals: Latonya Vargas MD [STAFF PHYSICIAN] -
[2019-10-12] MEDS: Ibuprofen 400 MG Tablet 800 MG PO (08:17)
[2019-10-12 09:20] VITALS: PULSE 106; RESP 19; TEMP 38.6
--- NOTE | 2019-10-12 09:21 | ED.RN ---
DISCHARGE INSTRUCTIONS GIVEN TO AND REVIEWED WITH PATIENT, PATIENT DENIES QUESTIONS OR CONCERNS AND VOICES UNDERSTANDING OF DISCHARGE INSTRUCTIONS. PT AMBULATES OUT OF ROOM WITHOUT DIFFICULTY.
== END 2019-10-12 09:21 | disposition home or self-care (01) ==
PROVIDERS: Emergency Provider Emergency Medicine
DX: J11.1 Influenza due to unidentified influenza virus with other respiratory manifestations (principal); Z87.891 Personal history of nicotine dependence
CPT/HCPCS: 71046; 99283

== ENCOUNTER 2019-11-30 08:18 | Emergency (ER) | payer MEDICAID, SELFPAY ==
[2019-11-30 08:19] VITALS: BP 123/77; PULSE 95; RESP 17; TEMP 37.2; O2SAT 99; BMI 25.4
[2019-11-30 08:47] VITALS: O2SAT 99
--- NOTE | 2019-11-30 08:47 | ED.DCSUM_ITS ---
History of Present Illness Chief Complaint: Cough Informant: Patient Onset: Yesterday Context: Gradual Onset Timing: Continuous Quality: occ productive of phlegm Current Severity: Mild Maximum Severity: Mild Worsened by: Swallowing - sore throat Associated Symptoms: Shortness of Breath - occasionally feels difficult to get a full breath in when I'm inhaling; no true dyspnea, Productive Cough. Negative for: Nasal Congestion, Headache, Sinus Pressure, Nausea, Vomiting, Diarrhea, Chest Pain, Hemoptysis Narrative: Patient denies any fevers. Started getting ill last night. No known exposures to other ill persons that he knows of. Patient presents during coronavirus national emergency. He has been trying to stay at home as advised by the governor [facility]. Denies any recent travel out of the area. Denies any history of asthma and no wheezing. He has a sore throat and a sore knot right neck. Past Medical History - Allergies and Home Meds Allergies/Adverse Reactions: Allergies amoxicillin Allergy (Verified 11/30/19 08:19) Hives bee venom protein (honey bee) Allergy (Verified 11/30/19 08:19) Swelling Penicillins [PCN] Allergy (Verified 11/30/19 08:19) Hives sulfamethoxazole [From Bactrim] Allergy (Verified 11/30/19 08:19) Hives trimethoprim [From Bactrim] Allergy (Verified 11/30/19 08:19) Hives Primary Care Physician: Care Physician,No Primary [Primary Care Provider] - Past Medical History: None Surgical History: no surgical history Smoking Status: Former smoker Drugs: None Review of Systems General: Denies: Chills, Fever, Sweats Eyes: Denies: Visual changes - bilaterally, Diplopia ENT: Reports: Sore throat. Denies: Bilateral ear pain, Rhinorrhea Cardiovascular: Denies: Chest pain, Palpitations Respiratory: Reports: Cough, Sputum. Denies: Dyspnea - See HPI. No dyspnea., Dyspnea on exertion, Orthopnea Gastrointestinal: Denies: Abdominal pain, Nausea, Vomiting, Diarrhea, Melena, Hematochezia Genitourinary: Denies: Dysuria, Hematuria, Frequency Musculoskeletal: Reports: Neck pain. Denies: Back pain, Swelling, Extremity Pain Skin: Denies: Rash, Wounds Neurological: Denies: Headache, Weakness, Numbness Physical Exam Vital Signs/Narrative: Vital Signs Temp Pulse Resp BP Pulse Ox 11/30/19 08:19 99.0 F 95 17 123/77 H 99 Inital Vital Signs reviewed: Yes General: Well nourished, Well developed Head: Normocephalic, Atraumatic Eyes: Perrl, EOMI Ears: Normal external canal, TM's clear Nose: Normal Inspection, No Rhinorrhea Mouth/Throat: Airway Patent, Posterior Oropharyngeal Erythema Tonsils: Negative for: Right Tonsilar Erythema, Left Tonsilar Erythema, Right Tonsilar Exudates, Left Tonsilar Exudates, Right Tonsilar Swelling, Left Tonsilar Swelling Neck: Supple, No Meningismus, Anterior Lymphadenopathy - Tender, right submandibular only. Negative for: Posterior Lymphadenopathy Cardiovascular: Regular rate, Regular rhythm, No murmurs Respiratory: No distress, CTA bilaterally, Chest nontender Skin: Normal color, No rash Neurological: Alert, Oriented x3, Cranial nerves II-XII grossly intact, Normal Strength, Normal Sensation, Normal Gait Psychological: Normal affect, Normal Mood Diagnostic/Tx/Re-eval - Medical Decision Making Patient is well-appearing with normal vital signs and no hypoxemia or fever. Supportive care advised. Patient does not have COVID-19 exposure and is not critically ill or clinically septic, has not traveled to/from a region with a CDC level 2 or 3 travel health notice, vital signs are stable without hypoxia, is not ill enough to require admission to the hospital, and at this time does not meet current [facility] requirements for testing for COVID-19. Reassured and discussed reasons to return, supportive care with symptomatic treatment for now. He was given a dose of Decadron that may help of this is a viral illness. No contraindications to that at this time, even if he was to have coronavirus infection which I discussed with him. ED Disposition - Plan for ED Patient: Disposition: Home or Assisted Living Diagnosis: Viral URI with cough Instructions: ED URI Viral Referrals: Anila Devine [NON-STAFF] - 10-14 Days if not better
[2019-11-30] MEDS: dexAMETHasone 4 MG Tablet 8 MG PO (08:54)
== END 2019-11-30 09:06 | disposition home or self-care (01) ==
LOC: ED 09:02
PROVIDERS: Emergency Provider Emergency Medicine
DX: J06.9 Acute upper respiratory infection, unspecified (principal); Z87.891 Personal history of nicotine dependence
CPT/HCPCS: 99283

== ENCOUNTER 2020-01-03 15:39 | Emergency (ER) | payer MEDICAID, SELFPAY ==
[2020-01-03 15:41] VITALS: BP 142/89; PULSE 116; RESP 22; TEMP 36.6; O2SAT 98; BMI 25.7
--- NOTE | 2020-01-03 15:53 | EKG12_ITS ---
Test Reason : DIZZY/SOB Blood Pressure : / mmHG Vent. Rate : 108 BPM Atrial Rate : 108 BPM P-R Int : 124 ms QRS Dur : 080 ms QT Int : 324 ms P-R-T Axes : 064 038 047 degrees QTc Int : 434 ms Sinus tachycardia Septal infarct , age undetermined Abnormal ECG Confirmed by ELLIOT DEE ([id number]), international editorial producer QUITA VELEZ ([id number]) on 01/07/2020 1:17:59 PM Referred By: DAVE/DEIDRE Confirmed By:ELLIOT DEE
--- NOTE | 2020-01-03 15:56 | ED.DCSUM_ITS ---
History of Present Illness Chief Complaint: Dizziness Informant: Patient Narrative: Patient presenting for evaluation secondary to lightheadedness and presyncope. Patient reports that he has a prior history of SVT that required cardioversion in May of last year. Patient states that today for the last 45 minutes he has been having intermittent feelings of palpitations, lightheadedness. Patient states that these will come and go and do not really seem like they are induced by anything and are associated with near syncope, but not complete syncope. Patient denies that he has any chest pain associated with this. No dyspnea. No recent illnesses such as fever cough nausea vomiting diarrhea. Patient denies any prescribed, [id number], or illicit stimulant use. He does report that he is had a mild amount of weight gain recently, but denies any heat intolerance, increased appetite, or weight loss. No night sweats. Review of systems otherwise negative. Past Medical History - Allergies and Home Meds Allergies/Adverse Reactions: Allergies amoxicillin Allergy (Verified 01/03/20 16:08) Hives bee venom protein (honey bee) Allergy (Verified 01/03/20 16:08) Swelling Penicillins [PCN] Allergy (Verified 01/03/20 16:08) Hives sulfamethoxazole [From Bactrim] Allergy (Verified 01/03/20 16:08) Hives trimethoprim [From Bactrim] Allergy (Verified 01/03/20 16:08) Hives Primary Care Physician: Care Physician,No Primary [Primary Care Provider] - Prior records reviewed: Yes Past Medical History: - - SVT Surgical History: no surgical history Smoking Status: Current every day smoker Drugs: None Review of Systems General: Denies: Chills, Fever, Sweats Eyes: Denies: Visual changes - bilaterally, Diplopia ENT: Denies: Rhinorrhea, Sore throat Cardiovascular: Reports: Palpitations, Heart racing, - - Lightheadedness. Denies: Chest pain Respiratory: Denies: Dyspnea, Cough, Dyspnea on exertion Gastrointestinal: Denies: Abdominal pain, Nausea, Vomiting, Diarrhea, Melena, Hematochezia Genitourinary: Denies: Dysuria, Hematuria, Frequency Musculoskeletal: Denies: Back pain, Extremity Pain Skin: Denies: Rash, Wounds Neurological: Denies: Headache, Weakness, Numbness Psych: Denies: Depression, Anxiety Endocrine: Denies: Polyuria, Polydipsia, Heat intolerance, Cold intolerance Hematologic: Denies: Easy bruising, Easy bleeding Allergy: Denies: Swelling of the mouth Physical Exam Vital Signs/Narrative: Vital Signs Temp Pulse Resp BP Pulse Ox 01/03/20 15:41 97.9 F 116 H 22 H 142/89 H 98 Inital Vital Signs reviewed: Yes General: Well nourished, Well developed, No Acute Distress Head: Normocephalic, Atraumatic Eyes: Perrl, EOMI ENT: Moist mucous membranes, No rhinorrhea, - - Thyroid does not appear to have any masses or lesions to palpation, and is nontender Neck: Supple, Nontender Cardiovascular: Regular rhythm, No murmurs, Tachycardia Respiratory: No distress, CTA bilaterally, Chest nontender Abdomen: Soft, Nontender, Nondistended, Normal bowel sounds Back: Nontender, Normal Inspection Extremities: Nontender, No edema Skin: Normal color, No rash, - - Diffuse acne is noted on the patient's back Neurological: Alert, Oriented x3, Cranial nerves II-XII grossly intact, Normal Strength, Normal Sensation Psychological: Normal affect, Normal Mood Diagnostic/Tx/Re-eval Laboratory Data 01/03/20 01/03/20 01/03/20 16:05 16:05 16:05 WBC 6.5 RBC 4.95 Hgb 14.2 Hct 42.0 MCV 84.8 MCH 28.7 MCHC 33.8 RDW Std Deviation 40.6 RDW Coeff of Emilie 13.2 Plt Count 201 MPV 9.6 Immature Gran % (Auto) 0.300 Neut % (Auto) 75.5 H Lymph % (Auto) 17.7 L [place] % (Auto) 5.4 Eos % (Auto) 0.3 Baso % (Auto) 0.8 Absolute Neuts (auto) 4.9 Absolute Lymphs (auto) 1.15 Nucleated RBC % 0 D-Dimer Quant (PE/DVT) < 0.27 L Sodium 141 Potassium 3.9 Chloride 106 Carbon Dioxide 30.0 Anion Gap 5 BUN 10 Creatinine 1.02 Estim Creat Clear Calc 72.17 Est GFR (MDRD) Af Amer 107 Est GFR (MDRD) Non-Af 89 BUN/Creatinine Ratio 9.8 L Glucose 107 H Calcium 9.2 Troponin I < 0.015 TSH 1.03 - EKG Initial EKG Interpretation: - - Sinus tachycardia with a rate of 108. Normal DC and QTc intervals. Isoelectric ST segments, normal T waves. Q waves are noted in leads V1 and V2 that were present on prior EKG in May 2019. No evidence of acute ischemia or arrhythmia. - Medical Decision Making Patient presented for evaluation secondary to palpitations. He was tachycardic on initial exam, IV was stabilized he was given a IV fluid bolus. EKG demonstrated sinus tachycardia with no other evidence of arrhythmias, no changes from prior EKG. CBC chemistry troponin TSH and d-dimer were all found to be unremarkable. Patient had improvement of his symptoms after 1 L normal saline. I believe that he is safe and appropriate for discharge at this time. Patient will follow-up with primary care as needed, he understands signs and symptoms which to return. ED Disposition - Plan for ED Patient: Disposition: Home or Assisted Living Diagnosis: Palpitations Instructions: ED Palpitations Referrals: Keshawn Roberson MD [STAFF PHYSICIAN] - As Needed
[2020-01-03] MEDS: 0.9% Normal Saline 1,000 ML 1000 ML IV (16:05)
[2020-01-03 16:27] LABS: Absolute Lymphocyte Count 1.15 X10^3/uL (0.83-4.51); Absolute Neutrophil Count 4.9 X10^3/uL (2.0-7.7); Basophil# 0.05 X10^3/uL; Basophil% 0.8 % (0-1); Eosinophil# 0.02 X10^3/uL; Eosinophils% 0.3 % (0-5); Hemoglobin 14.2 g/dL (13.0-16.5); Lymphocyte # 1.15 X10^3/ul (4.0); Lymphocyte % 17.7 % (19-41); Mean Corp Hgb Conc 33.8 g/dL (32-36); Mean Corpuscular Hgb 28.7 pg (27.0-32.0); Mean Corpuscular Volume 84.8 fL (80-94); Mean Platelet Vol. 9.6 fl (6.2-12.0); Monocyte# 0.35 X10^3/uL; Monocyte% 5.4 % (0-10); NRBC Flagged by Analyzer 0 % (0-5); Neutrophil # 4.91 X10^3/uL (2.7-7.7); Neutrophil % 75.5 % (47-70); Platelet Count 201 K/mm3 (150-450); RBC Distribution Width CV 13.2 % (11.6-14.6); RBC Distribution Width SD 40.6 fl (35.1-43.9); Red Blood Count 4.95 M/mm3 (4.6-6.2); White Blood Count 6.5 K/mm3 (4.4-11.0)
[2020-01-03 16:40] LABS: Anion Gap 5 (5-15); BUN 10 mg/dL (7-18); BUN/Creat Ratio 9.8 RATIO (10-20); Calcium,Total 9.2 mg/dL (8.5-10.1); Chloride 106 mmol/L (98-107); Creatinine, Serum 1.02 mg/dL (0.70-1.30); EST Glomerular Filtration Rate 89 mL/min (>60); Est Glom Filt Rate - Afr Amer 107 mL/min (>60); Estimated Creatinine Clearance 72.17 ml/min; Glucose 107 mg/dL (74-106); Potassium 3.9 mmol/L (3.5-5.1); Sodium Level 141 mmol/L (136-145); Thyroid Stim Hormone (TSH) 1.03 uIU/mL (0.358-3.74)
[2020-01-03 17:01] LABS: D-Dimer Quantitative (DVT/PE) < 0.27 FEU/ug/m (0.27-0.49)
[2020-01-03 17:25] VITALS: BP 119/89; PULSE 97; RESP 18; O2SAT 99
== END 2020-01-03 17:27 | disposition home or self-care (01) ==
PROVIDERS: Emergency Provider Emergency Medicine
DX: R00.2 Palpitations (principal); F17.200 Nicotine dependence, unspecified, uncomplicated
CPT/HCPCS: 80048; 84443; 84484; 85025; 85379; 93005; 96360; 99284; J7030

== ENCOUNTER 2020-05-10 13:22 | Emergency (ER) | payer MEDICAID, SELFPAY ==
[2020-05-10 13:23] VITALS: BP 130/78; PULSE 114; RESP 18; TEMP 36.3; O2SAT 100; BMI 25.4
--- NOTE | 2020-05-10 13:58 | ED.VIS.GEN ---
History of Present Illness Chief Complaint: Shortness of Breath Informant: Patient Narrative: 34-year-old male presents with cough, fever for the last couple of days. He also complains of body aches. He takes Tylenol and his fever does go away. He states he has a distant medical history of SVT but has not had to take medication for this in years. He is eating and drinking normally. He is making normal urine and stool. He states that he has not had any known sick contacts however his kids just started back to school. They have been healthy. Past Medical History - Allergies and Home Meds Allergies/Adverse Reactions: Allergies amoxicillin Allergy (Verified 05/10/20 13:23) Hives bee venom protein (honey bee) Allergy (Verified 05/10/20 13:23) Swelling Penicillins [PCN] Allergy (Verified 05/10/20 13:23) Hives sulfamethoxazole [From Bactrim] Allergy (Verified 05/10/20 13:23) Hives trimethoprim [From Bactrim] Allergy (Verified 05/10/20 13:23) Hives Primary Care Physician: Care Physician,No Primary [Primary Care Provider] - Prior records reviewed: Yes Past Medical History: - - SVT Surgical History: no surgical history Smoking Status: Unknown if ever smoked Review of Systems General: Reports: Chills, Fever, Malaise Eyes: Denies: Visual changes - bilaterally, Diplopia ENT: Reports: Sore throat. Denies: Rhinorrhea Cardiovascular: Denies: Chest pain, Palpitations Respiratory: Reports: Dyspnea, Cough Gastrointestinal: Reports: Abdominal pain, Nausea, Vomiting Genitourinary: Denies: Dysuria, Hematuria Musculoskeletal: Reports: Myalgias. Denies: Arthralgias Skin: Denies: Rash, Abscess Neurological: Reports: Headache Physical Exam Vital Signs/Narrative: Vital Signs Temp Pulse Resp BP Pulse Ox 05/10/20 13:23 97.3 F L 114 H 18 130/78 H 100 General: Well nourished, No Acute Distress Head: Normocephalic, Atraumatic Eyes: Perrl, EOMI ENT: Moist mucous membranes, No rhinorrhea, TM's clear Neck: Supple, Nontender, No lymphadenopathy Cardiovascular: Regular rate, Regular rhythm Respiratory: No distress, CTA bilaterally Abdomen: Soft, Nontender, Nondistended Back: Nontender, Normal Inspection Extremities: Nontender, No edema Skin: Normal color, No rash Neurological: Alert, Oriented x3 Psychological: Normal affect, Normal Mood Diagnostic/Tx/Re-eval - Medical Decision Making Patient presents with symptoms of viral syndrome. He is unsure if he has had exposure to COVID?19 or other ill people. He states the only known possible sick contacts could be from his kids going back to school although they have been healthy. Patient is having mild symptoms and I do not believe he needs blood work or imaging. I will test him for COVID and give him quarantine precautions. He will also keep his kids home from school until he gets his test results back. Impression: 1. Viral syndrome 2. Febrile illness 3. Cough ED Disposition - Plan for ED Patient: Disposition: Home or Assisted Living Instructions: ED Viral Syndrome Prescriptions: Ibuprofen 600 mg PO Q8H PRN PRN #30 tab PRN Reason: Fever Transmission Status: Pending to [facility] Acetaminophen [Tylenol Extra Strength] 500 - 1,000 mg PO Q8H PRN PRN #30 tab PRN Reason: fever Transmission Status: Pending to [facility] Ondansetron [Zofran Odt] 4 mg PO Q8H PRN PRN #14 tab PRN Reason: Nausea Transmission Status: Pending to [facility] Referrals: Care Physician,No Primary [Primary Care Provider] -
[2020-05-10] MEDS: dexAMETHasone 10 MG/ML Vial PO.IVFORM (15:10)
[2020-05-10 15:13] VITALS: BP 120/76; PULSE 88; RESP 18
[2020-05-10 15:14] VITALS: BP 120/76; PULSE 88; RESP 18; TEMP 36.3; O2SAT 100
== END 2020-05-10 15:24 | disposition home or self-care (01) ==
LOC: ED 14:47
PROVIDERS: Emergency Provider Student in an Organized Health Care Education/Training Program
DX: B34.9 Viral infection, unspecified (principal); R05 Cough; R50.9 Fever, unspecified
CPT/HCPCS: 87635; 99283; U0003

== ENCOUNTER 2020-09-11 11:08 | Emergency (ER) | payer MEDICAID, SELFPAY ==
[2020-09-11 11:08] VITALS: BP 118/72; PULSE 92; RESP 18; TEMP 36.5; O2SAT 98; BMI 22.6
--- NOTE | 2020-09-11 11:46 | ED.VISSUMM ---
- ER Visit Summary Date of Service: 09/11/20 Chief Complaint: Tired with nausea and vomiting History of Present Illness: The patient is a 35 M history of prior SVT. Currently on no medications. No prior surgeries. Patient states that he has had limited nausea vomiting and just felt tired last 2 to 3 days. No known exposure. There was someone at work had Covid but he was at work at that time and it was several weeks ago. He denies any fever. No new cough. No shortness of breath. No abdominal pain. No dysuria. No melena or hematemesis. Physical Examination: Well-appearing young male. Vital signs stable afebrile. He does not look septic or toxic. No distress. H EENT exam normal. Moist wheeze members. No facial droop. Normal speech. Pupils are unreactive light his motions are intact. TMs normal. Neck nontender. No lymphadenopathy. No meningismus. Normal range of motion. Lungs clear to auscultation bilaterally. Heart regular rhythm no murmur. Abdomen soft nontender normal bowel sounds no peritoneal signs. No obstruction. No distention. Patient moving all 4 extremities. Neurovascular intact. No edema. 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 Dorsi plantarflexion intact. Test Results: Discussed with patient clinically this does not appear to be Covid and he did not want to be tested. Emergency Department Course and Treatment: Viral syndrome. No labs necessary. Treatment Plan: Foods and rest. Zofran as needed. Follow-up if not improving. Return if worse. Disposition: Discharge Impression: Nausea and vomiting secondary to viral syndrome This note was generated with [employer] dictation software. It may contain incorrect words, spelling, and punctuation that were not noted in review of the chart prior to signing ED Disposition - Plan for ED Patient: Referrals: Care Physician,No Primary [Primary Care Provider] -
--- NOTE | 2020-09-11 11:53 | ED.DEP ---
ED Disposition - Plan for ED Patient: Disposition: Home or Assisted Living Instructions: ED Viral Syndrome (Adult) Prescriptions: Ondansetron [Zofran Odt] 4 mg PO Q8H PRN PRN #5 tab PRN Reason: Nausea Transmission Status: Received by [facility] Referrals: Salazar Olsen MD [STAFF PHYSICIAN] - 3-5 Days if not improving Additional Instructions: Plenty of fluids and rest. Zofran as needed for nausea which you may swallow or dissolve in your tongue. Return if feeling worse. Follow-up with local primary care physician if not improving. Tylenol and Motrin for body aches.
[2020-09-11 12:15] VITALS: BP 118/72; PULSE 80; RESP 16; TEMP 36.6; O2SAT 97
== END 2020-09-11 12:19 | disposition home or self-care (01) ==
LOC: ED 11:55
PROVIDERS: Emergency Provider Emergency Medicine
DX: B34.9 Viral infection, unspecified (principal); R11.2 Nausea with vomiting, unspecified; Z72.0 Tobacco use
CPT/HCPCS: 99282

== ENCOUNTER 2020-11-06 13:10 | Emergency (ER) | payer MEDICAID, SELFPAY ==
[2020-11-06 13:11] VITALS: BP 157/140; PULSE 231; RESP 14; TEMP 37.1; O2SAT 100; BMI 27.3
[2020-11-06] MEDS: 0.9% Normal Saline 1,000 ML 1000 ML IV (13:16)
[2020-11-06] MEDS: Adenosine 6 MG/2 ML Syringe 12 MG IV (13:18)
[2020-11-06 13:22] VITALS: O2SAT 100
--- NOTE | 2020-11-06 13:22 | EKG12_ITS ---
Test Reason : CP Blood Pressure : / mmHG Vent. Rate : 235 BPM Atrial Rate : 111 BPM P-R Int : 000 ms QRS Dur : 184 ms QT Int : 180 ms P-R-T Axes : 000 051 000 degrees QTc Int : 356 ms Supraventricular tachycardia Non-specific intra-ventricular conduction block Abnormal ECG Confirmed by PEDRITO HARRINGTON, KIMBERLY ([id number]), fan mail editor RAJ VENTURA ([id number]) on 11/10/2020 10:25:21 AM Referred By: PHILLIP Confirmed By:KIMBERLY MAJOR MD
--- NOTE | 2020-11-06 13:22 | ED.DCSUM_ITS ---
History of Present Illness Chief Complaint: Chest Pain Informant: Patient Narrative: 85-year-old male presenting with chest pain and shortness of breath. He has a history of SVT. Patient states this was distantly. When he had this before he was prescribed a medication which he does not know what it is. He states this was when he was in [place]. He only had a 1 month supply and no refills. Patient denies any other medical problems that are chronic. He has no recent travel, history of DVT/PE. no cardiac history other than SVT. Past Medical History - Allergies and Home Meds Allergies/Adverse Reactions: Allergies amoxicillin Allergy (Verified 11/06/20 13:11) Hives bee venom protein (honey bee) Allergy (Verified 11/06/20 13:11) Swelling Penicillins [PCN] Allergy (Verified 11/06/20 13:11) Hives sulfamethoxazole [From Bactrim] Allergy (Verified 11/06/20 13:11) Hives trimethoprim [From Bactrim] Allergy (Verified 11/06/20 13:11) Hives Primary Care Physician: Christian Rashid MD [STAFF PHYSICIAN] - Care Physician,No Primary [Primary Care Provider] - Past Medical History: - - SVT Surgical History: no surgical history Lives: Spouse/ Significant Other Smoking Status: Current every day smoker Alcohol: None Drugs: None Review of Systems General: Denies: Chills, Fever, Sweats Eyes: Denies: Visual changes - bilaterally, Diplopia ENT: Denies: Rhinorrhea, Sore throat Cardiovascular: Reports: Chest pain, Palpitations, Heart racing Respiratory: Reports: Dyspnea. Denies: Cough, Sputum Gastrointestinal: Denies: Abdominal pain, Nausea, Vomiting, Diarrhea, Melena, Hematochezia Genitourinary: Denies: Dysuria, Hematuria, Frequency Musculoskeletal: Denies: Back pain, Extremity Pain Skin: Denies: Rash, Wounds Neurological: Denies: Headache, Weakness, Parasthesia, Numbness, -, - Psych: Denies: Depression, Anxiety, Suicidal thoughts, Suicidal ideations, -, - Physical Exam Vital Signs/Narrative: Vital Signs Temp Pulse Resp BP Pulse Ox 11/06/20 13:11 98.8 F 231 H 14 157/140 H 100 Inital Vital Signs reviewed: Yes General: Well nourished, Acute Distress Head: Normocephalic, Atraumatic Eyes: Perrl, EOMI ENT: Moist mucous membranes, No rhinorrhea Cardiovascular: Regular rhythm, Tachycardia Respiratory: No distress, CTA bilaterally, Chest nontender Abdomen: Soft, Nontender, Nondistended, Normal bowel sounds Back: Nontender Extremities: Nontender, No edema Skin: Normal color, No rash, Diaphoresis. Negative for: Cyanosis Neurological: Alert, Oriented x3, Cranial nerves II-XII grossly intact Psychological: Normal affect, Normal Mood Diagnostic/Tx/Re-eval Clinical Impression(s) from Imaging Studies Chest X-Ray 11/06/20 13:25 IMPRESSION: Normal x-ray examination of the chest. Electronically Signed: Donavan Cervantes MD at 13:38 EDT , Service support , Laboratory Data 11/06/20 11/06/20 11/06/20 13:20 13:20 13:20 WBC 11.1 H RBC 5.66 Hgb 16.1 Hct 47.9 MCV 84.6 MCH 28.4 MCHC 33.6 RDW Std Deviation 39.2 RDW Coeff of Emilie 12.8 Plt Count 324 MPV 10.2 Immature Gran % (Auto) 0.400 Neut % (Auto) 63.0 Lymph % (Auto) 26.4 [place] % (Auto) 7.2 Eos % (Auto) 2.2 Baso % (Auto) 0.8 Absolute Neuts (auto) 7.0 Absolute Lymphs (auto) 2.92 Nucleated RBC % 0 D-Dimer Quant (PE/DVT) <= 0.27 Sodium 139 Potassium 3.6 Chloride 105 Carbon Dioxide 29.0 Anion Gap 5 BUN 16 Creatinine 1.09 Estim Creat Clear Calc 69.97 Est GFR (MDRD) Af Amer 99 Est GFR (MDRD) Non-Af 82 BUN/Creatinine Ratio 14.7 Glucose 106 Calcium 9.0 Troponin I < 0.015 - Medical Decision Making 35-year-old male presenting with chest pain or shortness of breath. He is found to be in SVT on EKG at a rate of 235 bpm as interpreted by myself. We did attempt vagal maneuvers with no success while awaiting adenosine. Patient was given 12 mg of adenosine and converted to a sinus rhythm on EKG at 122 bpm without signs of ischemic changes. Patient feels improved. Will obtain lab work and imaging. Lab work is all within normal limits. Troponin negative. D- dimer negative. One-view portable chest x-ray is interpreted by myself shows no acute cardiopulmonary process. Radiology does agree. Patient feeling comfortable at this time. He was given 25 mg oral metoprolol. I discussed the patient with on-call cardiology, Dr. Cagle, who felt patient was safe to be discharged home. He recommended 25 mg metoprolol twice daily. Patient will follow up with Dr. Rashid. Patient given return cautions. Patient able discharge at this time. Impression: 1. SVT ED Disposition - Plan for ED Patient: Disposition: Home or Assisted Living Referrals: Care Physician,No Primary [Primary Care Provider] - Christian Rashid MD [STAFF PHYSICIAN] - Additional Instructions: Today you were diagnosed with SVT. I spoke with cardiology and he will follow- up with Dr. Rashid. He recommended I put you on metoprolol 25 mg twice daily.
--- NOTE | 2020-11-06 13:25 | RAD_ITS ---
STUDY: X-RAY CHEST REASON FOR EXAM: Male, 35 years old. Chest pain TECHNIQUE: Single AP portable view of the chest. COMPARISON: Comparison is made with prior study dated 10/12/2019. FINDINGS: EKG electrodes are seen. The lungs are clear and expanded. There is no demonstrated pleural abnormality. Normal size heart. Normal mediastinum and nathalie. Normal visualized pulmonary arteries. Normal visualized aortic arch and descending thoracic aorta. Normal visualized thoracic spine. Normal visualized ribs, clavicles, and shoulders. There is no demonstrated abnormality of the visualized soft tissue structures of the upper abdomen. RAD/Chest 1 View (Portable) IMPRESSION: Normal x-ray examination of the chest. Electronically Signed: Donavan Cervantes MD at 13:38 EDT , Service support ,
[2020-11-06 13:29] LABS: Absolute Lymphocyte Count 2.92 X10^3/uL (0.83-4.51); Basophil# 0.09 X10^3/uL; Basophil% 0.8 % (0-1); Eosinophil# 0.24 X10^3/uL; Eosinophils% 2.2 % (0-5); Hematocrit 47.9 % (40-54); Hemoglobin 16.1 g/dL (13.0-16.5); Lymphocyte # 2.92 X10^3/ul (4.0); Lymphocyte % 26.4 % (19-41); Mean Corp Hgb Conc 33.6 g/dL (32-36); Mean Corpuscular Hgb 28.4 pg (27.0-32.0); Mean Corpuscular Volume 84.6 fL (80-94); Mean Platelet Vol. 10.2 fl (6.2-12.0); Monocyte% 7.2 % (0-10); NRBC Flagged by Analyzer 0 % (0-5); Neutrophil # 6.98 X10^3/uL (2.7-7.7); Platelet Count 324 K/mm3 (150-450); RBC Distribution Width CV 12.8 % (11.6-14.6); RBC Distribution Width SD 39.2 fl (35.1-43.9); Red Blood Count 5.66 M/mm3 (4.6-6.2); White Blood Count 11.1 K/mm3 (4.4-11.0)
[2020-11-06] MEDS: Aspirin 81 MG TAB.CHEW 324 MG PO (13:30)
--- NOTE | 2020-11-06 13:38 | EKG12_ITS ---
Test Reason : REPEAT Blood Pressure : / mmHG Vent. Rate : 122 BPM Atrial Rate : 122 BPM P-R Int : 114 ms QRS Dur : 064 ms QT Int : 286 ms P-R-T Axes : 069 044 054 degrees QTc Int : 407 ms Sinus tachycardia Septal infarct , age undetermined Abnormal ECG Confirmed by PEDRITO HARRINGTON, KIMBERLY ([id number]), story editor RAJ VENTURA ([id number]) on 11/10/2020 10:25:51 AM Referred By: PHILLIP Confirmed By:KIMBERLY MAJOR MD
[2020-11-06 13:46] LABS: D-Dimer Quantitative (DVT/PE) <= 0.27 FEU/ug/m (0.27-0.49)
[2020-11-06 13:49] LABS: Anion Gap 5 (5-15); BUN 16 mg/dL (7-18); BUN/Creat Ratio 14.7 RATIO (10-20); Chloride 105 mmol/L (98-107); Creatinine, Serum 1.09 mg/dL (0.70-1.30); EST Glomerular Filtration Rate 82 mL/min (>60); Est Glom Filt Rate - Afr Amer 99 mL/min (>60); Estimated Creatinine Clearance 69.97 ml/min; Glucose 106 mg/dL (74-106); Potassium 3.6 mmol/L (3.5-5.1); Sodium Level 139 mmol/L (136-145)
[2020-11-06] MEDS: Metoprolol Tartrate 25 MG Tablet PO (13:51)
[2020-11-06 14:11] VITALS: BP 118/93; PULSE 119; RESP 23; O2SAT 98
[2020-11-06 15:23] VITALS: BP 111/86; PULSE 98; RESP 16; O2SAT 99
[2020-11-06 15:24] VITALS: BP 111/86; PULSE 98; RESP 16; O2SAT 99
== END 2020-11-06 15:32 | disposition home or self-care (01) ==
PROVIDERS: Emergency Provider Student in an Organized Health Care Education/Training Program
DX: I47.1 Supraventricular tachycardia (principal); F17.200 Nicotine dependence, unspecified, uncomplicated
CPT/HCPCS: 71045; 80048; 84484; 85025; 85379; 93005; 96361; 96374; 99283; J7030; A4216; J0153

== ENCOUNTER 2020-11-12 14:47 | Emergency (ER) | payer MEDICAID, SELFPAY ==
[2020-11-12 14:48] VITALS: BP 132/84; PULSE 90; RESP 16; TEMP 36.3; O2SAT 100; BMI 26.3
--- NOTE | 2020-11-12 14:59 | ED.DCSUM_ITS ---
History of Present Illness Chief Complaint: Palpitations Informant: Patient Onset: Hours Context: Sudden Onset Timing: Continuous Quality: Palpitations, shortness of breath and numbness left upper extremity Location: Cardiovascular Current Severity: Mild Maximum Severity: Moderate Worsened by: Nothing Relieved by: Nothing Associated Symptoms: Previously documented Narrative: Patient is a 35-year-old male with history of paroxysmal supraventricular tachycardia who was seen on Tuesday. His heart rate at that time was 235. He was treated successfully with adenosine. He is scheduled to see Dr. Christian Rashid. He is presently on metoprolol. He states he is compliant with his medication. He does have history of PSVT. The last time he sought medical attention was in 2018 when he lived in [place]. He denies pressure, tightness or heaviness in his chest. He denies radiation of the palpitations etc. He did not break out in a cold sweat. He denies fever, chills night sweats. He denies unintentional weight loss. He denies heat or cold intolerance. He denies cough, pleuritic chest pain, history of VTE, leg pain, discoloration or swelling. Prior similar symptoms: Yes Recent Illness/Hospitalization: Yes - Past Medical History (1) Paroxysmal supraventricular tachycardia Status: Acute Past Medical History - Allergies and Home Meds Allergies/Adverse Reactions: Allergies amoxicillin Allergy (Verified 11/12/20 14:50) Hives bee venom protein (honey bee) Allergy (Verified 11/12/20 14:50) Swelling Penicillins [PCN] Allergy (Verified 11/12/20 14:50) Hives sulfamethoxazole [From Bactrim] Allergy (Verified 11/12/20 14:50) Hives trimethoprim [From Bactrim] Allergy (Verified 11/12/20 14:50) Hives Primary Care Physician: Care Physician,No Primary [Primary Care Provider] - Prior records reviewed: Yes Surgical History: no surgical history Lives: Spouse/ Significant Other, With Family Smoking Status: Former smoker Alcohol: None Drugs: None Review of Systems General: Denies: Chills, Fever, Malaise, Subjective, Sweats, Weight loss Eyes: Denies: Visual changes - bilaterally, Blurred Vision - bilaterally ENT: Denies: Bilateral ear pain, Rhinorrhea, Sore throat Cardiovascular: Reports: Palpitations. Denies: Chest pain, Heart racing Respiratory: Reports: Dyspnea. Denies: Cough, Sputum, Dyspnea on exertion, Ort hopnea, Paroxysmal nocturnal dyspnea Gastrointestinal: Denies: Abdominal pain, Nausea, Vomiting, Diarrhea, Constipation, Melena, Hematochezia, -, - Genitourinary: Denies: Dysuria, Hematuria, Frequency Musculoskeletal: Denies: Myalgias, Arthralgias, Neck pain, Back pain, Swelling, Extremity Pain, -, - Skin: Denies: Rash, Wounds Neurological: Denies: Headache, Weakness, Numbness Endocrine: Denies: Polyuria, Polydipsia, Heat intolerance, Cold intolerance Physical Exam Vital Signs/Narrative: Vital Signs Temp Pulse Resp BP Pulse Ox 11/12/20 14:48 97.3 F L 90 16 132/84 H 100 Inital Vital Signs reviewed: Yes General: Well nourished, Well developed, No Acute Distress Head: Normocephalic, Atraumatic Eyes: Perrl, EOMI. Negative for: Pale conjunctiva, Scleral icterus ENT: Moist mucous membranes, No rhinorrhea Neck: Supple, Nontender, No lymphadenopathy, No JVD Cardiovascular: Regular rate, Regular rhythm, No murmurs, Normal S1, Normal S2 Respiratory: No distress, CTA bilaterally, Chest nontender Abdomen: Soft, Nontender, Nondistended, Normal bowel sounds Back: Nontender, Normal Inspection, - - There is no asymmetry, swelling, discoloration, leg vein distention, palpable cords or tenderness along the distribution of the deep venous system. Extremities: Nontender, No edema Skin: Normal color, No rash, No Trauma. Negative for: Cyanosis, Diaphoresis, Jaundice Neurological: Alert, Oriented x3, Cranial nerves II-XII grossly intact, Normal Strength, Normal Sensation Psychological: Normal affect, Normal Mood Diagnostic/Tx/Re-eval Chest X-Ray - ED: 2 View, Normal, Heart, Lungs, Mediastinum, Bony Structures, No Acute Disease, Chronic Changes, - - Chest x-rays compared to November 06, 2020. The x-ray is unchanged. Patient was discharged to home. He was directed keep appointment with Dr. Monroe. - EKG Initial EKG Interpretation: Sinus Rhythm - Normal sinus rhythm with a ventricular rate 83. NV interval is 134 ms. QRS duration 82 ms. QT duration 3 and 52 ms. Grandy is normal. EKG is normal. - Medical Decision Making Dictation from this past Tuesday was read. EKG was ordered to evaluate for ischemia. Chest x-ray to evaluate his complaint of shortness of breath. Patient's heart score is 0 not including troponin level. Troponin was obtained on Tuesday which was negative. D-dimer was obtained on Tuesday which was negative. Will place on monitor and observe. ED Disposition - Plan for ED Patient: Disposition: Home or Assisted Living Diagnosis: Palpitations, Dyspnea, Numbness and tingling of left upper extremity Instructions: ED Palpitations, ED Dyspnea, ED Paraesthesias Referrals: Care Physician,No Primary [Primary Care Provider] - Christian Rashid MD [STAFF PHYSICIAN] - Keep Javid appointment
--- NOTE | 2020-11-12 14:59 | EKG12_ITS ---
Test Reason : PALPATATIONS Blood Pressure : / mmHG Vent. Rate : 083 BPM Atrial Rate : 083 BPM P-R Int : 134 ms QRS Dur : 082 ms QT Int : 352 ms P-R-T Axes : 070 050 042 degrees QTc Int : 413 ms Normal sinus rhythm Normal ECG Confirmed by SANGEETA HARRINGTON, ZEINA ([id number]), continuity editor RAJ VENTURA ([id number]) on 11/14/2020 9:29:46 AM Referred By: ALPHONSO Confirmed By:ARAM RUTHERFORD MD
--- NOTE | 2020-11-12 14:59 | RAD_ITS ---
STUDY: X-RAY CHEST REASON FOR EXAM: Male, 35 years old. Dyspnea TECHNIQUE: Frontal and lateral views of the chest COMPARISON: 11/06/20 FINDINGS: The lungs are clear. There are no pleural effusions. There is no pneumothorax. The heart is normal in size. The visualized osseous structures are within normal limits. RAD/Chest PA and Lateral IMPRESSION: No acute thoracic pathology. Electronically Signed: Josh Dempsey MD at 15:35 EDT Tel , Service support ,
[2020-11-12 16:14] VITALS: BP 111/68; PULSE 70; RESP 16; O2SAT 98
== END 2020-11-12 16:25 | disposition home or self-care (01) ==
PROVIDERS: Emergency Provider Emergency Medicine
DX: R00.2 Palpitations (principal); R20.0 Anesthesia of skin; R20.2 Paresthesia of skin; R06.00 Dyspnea, unspecified; Z87.891 Personal history of nicotine dependence
CPT/HCPCS: 71046; 93005; 99283; A4216

== ENCOUNTER → 2020-11-28 14:08 | Outpatient (CLI) | payer MEDICAID, SELFPAY ==
[2020-11-28 12:37] VITALS: BMI 27.8
[2020-11-28 14:52] LABS: Thyroid Stim Hormone (TSH) 1.36 uIU/mL (0.358-3.74)
== END ==
PROVIDERS: Referring Provider Internal Medicine Cardiovascular Disease; Visit Provider Internal Medicine Cardiovascular Disease
DX: I47.1 Supraventricular tachycardia (principal)
CPT/HCPCS: 36415; 84443

== ENCOUNTER → 2020-12-12 10:52 | Outpatient (CLI) | payer MEDICAID, SELFPAY ==
[2020-11-28 12:37] VITALS: BMI 27.8
--- NOTE | 2020-12-12 10:55 | ECHOCS_ITS ---
Reason For Study: PSVT Procedure This was a 2D Doppler, Color Flow transthoracic echocardiogram. The study was technically difficult. Contrast injection was performed. Exam performed in department. Left Ventricle Normal LV size. Left ventricular systolic function is normal. The estimated ejection fraction is 55 %. Stage 1 diastolic dysfunction. No regional wall motion abnormalities noted. Right Ventricle Normal RV size. Normal systolic function. Atria Normal left atrium. Normal right atrium. Mitral Valve Normal mitral valve. Tricuspid Valve Normal tricuspid valve. Aortic Valve Trisinus/trileaflet aortic valve. Pulmonic Valve Normal pulmonic valve. Great Vessels Normal aortic root. The pulmonary artery is normal size. Normal inferior vena cava. Pericardium/Pleural No pericardial effusion. Medication 22 gauge I.V. with prn adaptor inserted into right arm. Diluted definity 3ml given slow IV push to enhance endocardial definition. MMode/2D Measurements & Calculations LVIDd: 3.8 cm IVSd: 1.0 cm Ao root diam: 3.1 cm LVIDs: 2.5 cm LVPWd: 1.1 cm FS: 32.9 % LAV(MOD-bp): 18.8 ml LA A4 area: 7.1 cm2 RA A4 area: 7.1 cm2 LAV(MOD-bp) Indexed: 11.5 ml/m2 LAV(MOD-sp2): 21.9 ml LAV(MOD-sp4): 12.7 ml Time Measurements MV dec time: 0.28 sec Doppler Measurements & Calculations MV E max pedro pablo: 62.4 cm/sec Lat Peak E' Pedro Pablo: 12.1 cm/sec Med Peak E' Pedro Pablo: 8.9 cm/sec MV A max pedro pablo: 74.4 cm/sec E/E' lat: 5.1 E/E' med: 7.0 MV E/A: 0.84 MV V2 max: 78.7 cm/sec MV P1/2t max pedro pablo: 70.1 cm/sec Ao V2 max: 95.8 cm/sec MV max P.5 mmHg MV P1/2t: 103.9 msec Ao max P.7 mmHg MV V2 mean: 45.6 cm/sec MV dec slope: 197.7 cm/sec2 MV mean P.95 mmHg MV V2 VTI: 23.8 cm MVA(P1/2t): 2.1 cm2 LV V1 max: 80.2 cm/sec PA V2 max: 113.6 cm/sec LV V1 max P.6 mmHg ECHO/Echo Complete W/ Contrast Interpretation Summary Normal LV size. Left ventricular systolic function is normal. The estimated ejection fraction is 55 %. Stage 1 diastolic dysfunction. Contrast injection was performed. Ordering Physician: Christian Rashid Referring Physician: Christian Rashid Performed By: Pj Damon RCS
== END ==
PROVIDERS: Referring Provider Internal Medicine Cardiovascular Disease; Visit Provider Internal Medicine Cardiovascular Disease
DX: I47.1 Supraventricular tachycardia (principal)
CPT/HCPCS: 93306; Q9957; A4216; C8929

== ENCOUNTER 2021-03-02 21:56 | Emergency (ER) | payer MEDICAID, SELFPAY ==
[2020-11-28 12:37] VITALS: BMI 27.8
[2021-03-02 21:57] VITALS: BP 124/85; PULSE 69; RESP 15; TEMP 36.3; O2SAT 97; BMI 26.9
--- NOTE | 2021-03-02 22:22 | EKG12_ITS ---
Test Reason : DYSRHYTHMIA Blood Pressure : / mmHG Vent. Rate : 064 BPM Atrial Rate : 064 BPM P-R Int : 120 ms QRS Dur : 090 ms QT Int : 382 ms P-R-T Axes : 041 048 046 degrees QTc Int : 394 ms Normal sinus rhythm Septal CO, age undetermined, cannot be excluded Confirmed by HARRY HARRINGTON, DUANE ([id number]), scientific editor RAJ VENTURA ([id number]) on 03/04/2021 9:27:06 AM Referred By: Confirmed By:DUANE MCDONALD MD
--- NOTE | 2021-03-02 22:24 | EX.ED.DYSGE1 ---
HPI History of Present Illness Chief Complaint: General Illness Informant: patient Narrative Narrative: 35-year-old male with a history of SVT presents for the evaluation of nausea and a choking sensation. Patient states that 15 minutes prior to arrival he was reading a DrKay Masters spoke to his son when he developed a fast heart rate feeling like his neck was being choked short of breath and intermittent nausea. He notes that he feels that he is wheezing he states that he did not take his pulse but it was fast. In triage his heart rate of 69. He states he felt sweaty which has now resolved. He is currently on metoprolol 25 mg twice daily. Patient denies chest pain. He denies any DVT PE risk factors. Patient appears anxious but states he does not feel anxious. In an unrelated complaint patient states that 3 weeks ago while working on a car he smashed his right hand. He states that the little fingers MCP joint swelled and turned purple. Since that time he has had problems with opposition. When he attempts to do it he gets pain over the fifth MCP joint and laterally. PFSH PFS Medical History (Updated 03/02/21 @ 23:[address] Riki Mckenna DO) Family history of ischemic heart disease (IHD) Paroxysmal supraventricular tachycardia Home Medications metoprolol tartrate 25 mg tablet 25 mg PO BID #60 tablet 11/28/20 [Rx Last Taken Unknown] Allergy/AdvReac Type Severity Reaction Status Date / Time amoxicillin Allergy Hives Verified 03/02/21 21:58 bee venom protein (honey bee) Allergy Swelling Verified 03/02/21 21:58 Penicillins [PCN] Allergy Hives Verified 03/02/21 21:58 sulfamethoxazole Allergy Hives Verified 03/02/21 21:58 [From Bactrim] trimethoprim [From Bactrim] Allergy Hives Verified 03/02/21 21:58 Family History Brother CAD (coronary artery disease), Onset Age: 24 CABG Myocardial infarction, Onset Age: 53 Aunt Myocardial infarction, Onset Age: 43 Uncle Myocardial infarction Brother CAD (coronary artery disease), Onset Age: 22 CABG ICM ICD Social History (Updated 03/02/21 @ 22:[address] Riki Mckenna DO) Smoking Status: Former smoker quit date: 08/22/09 pack-years: 10 Smokeless tobacco user: snuff substance use type: does not use ROS ROS ED Constitutional Constitutional ED: Denies chills or weight loss Eyes Eyes: Denies change in vision or diplopia ENT ENT ED: Denies ear pain, rhinorrhea or sore throat Cardiovascular Cardiovascular: Reports racing heartbeat; Denies chest pain, orthopnea or palpitations Respiratory/Chest Respiratory/Chest: Reports dyspnea; Denies cough or orthopnea Gastrointestinal Gastrointestinal: Reports nausea; Denies abdominal pain, diarrhea or vomiting Genitourinary Genitourinary ED: Denies dysuria, hematuria or urinary frequency Musculoskeletal Musculoskeletal: Denies arthralgias or myalgias Integumentary Reports other Details: Diaphoresis ; Denies abscess or rash Neurologic Neurologic: Denies headache(s) or weakness Psychiatric Psychiatric: Denies anxiety, depression, suicidal ideation or suicidal thoughts Endocrine Endocrinology: Denies polydipsia, polyphagia or polyuria Allergic/Immunologic Allergic/Immunologic ED: Denies mouth swelling, tongue swelling or urticaria EXAM Physical Exam Const Vital Signs: 03/02/21 21:57 Temperature 97.3 F L Temperature Source Temporal Pulse Rate 69 Respiratory Rate 15 Blood Pressure 124/85 H Blood Pressure Mean 98 Pulse Ox 97 Oxygen Delivery Method Room Air Positive well nourished and well developed General Appearance ED: well developed HEENT Reports normocephalic, head/scalp atraumatic and moist mucous membranes Eyes PERRL and EOMs intact bilaterally Neck no lymphadenopathy, supple and no JVD Resp normal respiratory effort and clear to auscultation bilaterally Cardio regular rate, regular rhythm and no murmurs GI normal to inspection, nondistended, normoactive bowel sounds and non-tender Palpation: soft Back/Spine no CVA tenderness and normal ROM Extremity Extremity Narrative: Patient has tenderness over the fifth MCP joint. There is no malrotation. He has pain with opposition. However direct testing of the flexor tendons and extensor tendons does not show any deficit. Neurovascular is intact General Extremety ED: Yes tenderness; Negative for edema General Extremity: Negative for edema Neuro oriented x3 and CN's II-XII intact bilaterally Sensorium / Orientation: alert Motor Exam: strength 5/5 throughout Psych mental status grossly normal Mood & Affect: anxious; Negative for depressed or tearful Skin no rashes or lesions noted and no wounds MDM MDM MDM Narrative Medical decision making narrative: My interpretation of the single portable view chest x-ray is no acute process. My interpretation of the right hand films is no acute process. CBC normal. D-dimer troponin negative. BMP is normal. EKG is a normal sinus rhythm with normal intervals. Patient received Zofran and Ativan. Repeat examination finds him to be doing better. No further nausea. His dyspnea and choking sensation is improved. At this point I think the patient can be discharged home. Follow-up with primary care and orthopedics. Lab Data Attestation: I reviewed the patient's lab results. Labs: Laboratory Results - last 24 hr 03/02/21 03/02/21 03/02/21 22:30 22:30 22:30 WBC 9.2 RBC 5.22 Hgb 14.9 Hct 44.0 MCV 84.3 MCH 28.5 MCHC 33.9 RDW Std Deviation 37.1 RDW Coeff of Emilie 12.1 Plt Count 262 MPV 9.8 Immature Gran % (Auto) 0.200 Neut % (Auto) 64.8 Lymph % (Auto) 27.1 Stephenson % (Auto) 5.7 Eos % (Auto) 1.7 Baso % (Auto) 0.5 Absolute Neuts (auto) 5.9 Absolute Lymphs (auto) 2.48 Nucleated RBC % 0 D-Dimer Quant (PE/DVT) < 0.27 L Sodium 137 Potassium 4.1 Chloride 104 Carbon Dioxide 26.0 Anion Gap 7 BUN 15 Creatinine 1.14 Estim Creat Clear Calc 63.96 Est GFR (MDRD) Af Amer 94 Est GFR (MDRD) Non-Af 77 BUN/Creatinine Ratio 13.2 Glucose 94 Calcium 8.9 Troponin I High Sens < 3.0 L Radiography Diagnostic Testing: Radiology Impression Chest X-Ray 03/02/21 22:34 IMPRESSION: No acute radiographic abnormalities. Electronically Signed: Marcell Clements MD at 22:47 EDT Tel , Service support , EKG Initial EKG: Attestation: I personally reviewed and interpreted this EKG as follows: Comments: Normal sinus rhythm at a rate of 64 bpm no concerning features of ACS or ectopy noted. Discharge Plan Triage Chief Complaint: General Illness ED Provider: Riki Mckenna Dx/Rx/DC Orders Clinical Impression: Nausea, Acute dyspnea, Hand pain, right Instructions: ED Dyspnea Prescriptions: No Action metoprolol tartrate 25 mg tablet 25 mg PO BID Qty: 60 RF: 11 Primary Care Provider: Care Physician,No Primary Referrals: Donna Nguyen DO [NON-STAFF] - As Needed (For primary care) Dirk Agarwal DO [STAFF PHYSICIAN] - As soon as possible (For orthopedics) Care Physician,No Primary [Primary Care Provider] - Disposition Disposition: Home, Self Care
--- NOTE | 2021-03-02 22:34 | RAD_ITS ---
INDICATION: DYSPNEA EXAMINATION/TECHNIQUE: X-RAY - XR Chest 1 View COMPARISON: 11/12/2020. FINDINGS: The lungs are clear. The cardiomediastinal silhouette is unremarkable. No pleural effusion or pneumothorax. No acute osseous abnormalities. RAD/Chest 1 View (Portable) IMPRESSION: No acute radiographic abnormalities. Electronically Signed: Marcell Clements MD at 22:47 EDT Tel , Service support ,
[2021-03-02] MEDS: LORazepam 2 MG/ML Syringe 1 MG IV (22:38)
[2021-03-02 22:39] LABS: Absolute Lymphocyte Count 2.48 X10^3/uL (0.83-4.51); Absolute Neutrophil Count 5.9 X10^3/uL (2.0-7.7); Basophil# 0.05 X10^3/uL; Basophil% 0.5 % (0-1); Eosinophil# 0.16 X10^3/uL; Eosinophils% 1.7 % (0-5); Hemoglobin 14.9 g/dL (13.0-16.5); Lymphocyte # 2.48 X10^3/ul (0.83-4.51); Lymphocyte % 27.1 % (19-41); Mean Corp Hgb Conc 33.9 g/dL (32-36); Mean Corpuscular Hgb 28.5 pg (27.0-32.0); Mean Corpuscular Volume 84.3 fL (80-94); Mean Platelet Vol. 9.8 fl (6.2-12.0); Monocyte# 0.52 X10^3/uL; Monocyte% 5.7 % (0-10); NRBC Flagged by Analyzer 0 % (0-5); Neutrophil # 5.93 X10^3/uL (2.7-7.7); Neutrophil % 64.8 % (47-70); Platelet Count 262 K/mm3 (150-450); RBC Distribution Width CV 12.1 % (11.6-14.6); RBC Distribution Width SD 37.1 fl (35.1-43.9); Red Blood Count 5.22 M/mm3 (4.6-6.2); White Blood Count 9.2 K/mm3 (4.4-11.0)
[2021-03-02] MEDS: Ondansetron 4 MG/2 ML Vial IV (22:39)
[2021-03-02 22:53] LABS: D-Dimer Quantitative (DVT/PE) < 0.27 FEU/ug/m (0.27-0.49)
[2021-03-02 22:58] LABS: Anion Gap 7 (5-15); BUN 15 mg/dL (7-18); BUN/Creat Ratio 13.2 RATIO (10-20); Calcium,Total 8.9 mg/dL (8.5-10.1); Chloride 104 mmol/L (98-107); Creatinine, Serum 1.14 mg/dL (0.70-1.30); EST Glomerular Filtration Rate 77 mL/min (>60); Est Glom Filt Rate - Afr Amer 94 mL/min (>60); Estimated Creatinine Clearance 63.96 ml/min; Glucose 94 mg/dL (74-106); Potassium 4.1 mmol/L (3.5-5.1); Sodium Level 137 mmol/L (136-145); Troponin-I HS < 3.0 pg/mL (3.0-78.5)
--- NOTE | 2021-03-02 23:10 | RAD_ITS ---
STUDY: X-RAY - RIGHT HAND REASON FOR EXAM: Male, 35 years old. INJURY TECHNIQUE: 3 view(s) of the hand. COMPARISON: None. FINDINGS: Normal radiocarpal articulation. Normal distal radioulnar joint. Normal visualized carpal bones. Normal carpal articulations Normal carpometacarpal articulation of the thumb. Normal second through fifth carpometacarpal joints. Normal metacarpi. Normal metacarpophalangeal joint of the thumb. Normal interphalangeal joint of the thumb. Normal proximal and distal phalanges of the thumb. Normal metacarpophalangeal joints of the second through fifth fingers. Normal proximal and distal interphalangeal joints of the second through fifth fingers. Normal phalanges of the second through fifth fingers. The soft tissue structures are unremarkable. RAD/Hand Min 3 Views IMPRESSION: Normal x-ray examination of the hand. Electronically Signed: Franck Jimenes MD at 23:45 EDT Tel , Service support ,
[2021-03-02 23:36] VITALS: BP 109/81; PULSE 67; RESP 18; O2SAT 97
== END 2021-03-02 23:40 | disposition home or self-care (01) ==
PROVIDERS: Emergency Provider Emergency Medicine
DX: R11.0 Nausea (principal); R06.00 Dyspnea, unspecified; M79.641 Pain in right hand; I47.1 Supraventricular tachycardia; Z79.899 Other long term (current) drug therapy; Z87.891 Personal history of nicotine dependence
CPT/HCPCS: 71045; 73130; 80048; 84484; 85025; 85379; 93005; 96374; 96375; 99284; A4216; J2405